=== PATIENT | female | born 1960 ===

== ENCOUNTER 2016-12-24 12:01 | Inpatient (IN) | payer SELFPAY ==
--- NOTE | 2016-12-24 13:24 | C.PDOC ---
History Of Present Illness 56 yr old female presents to the ER with complaints of productive cough with yellow phlegm for the past 2 days. Patient reports of pain in chest when she coughs. Also reports of SOB. Denies history of asthma, smoking, nausea, vomiting , weakness or numbness. Time Seen by Provider: 12/24/16 12:44 Chief Complaint (Nursing): Shortness Of Breath History Per: Patient History/Exam Limitations: no limitations Onset/Duration Of Symptoms: Days (2) Past Medical History Reviewed: Historical Data, Nursing Documentation, Vital Signs Vital Signs: Last Vital Signs Temp 98.4 F 12/24/16 18:25 Pulse 111 H 12/24/16 18:25 Resp 15 12/24/16 18:25 BP 151/78 H 12/24/16 18:25 Pulse Ox 96 12/24/16 18:57 - Medical History PMH: Gastritis, HTN, Pneumonia - [facility] Procedures EXCISION OF ASCENDING COLON, ENDO (10/20/15) Family History: States: No Known Family Hx - Social History Hx Tobacco Use: No Hx Alcohol Use: No Hx Substance Use: No - Immunization History Hx Tetanus Toxoid Vaccination: No Hx Influenza Vaccination: No Hx Pneumococcal Vaccination: Yes Review Of Systems Except As Marked, All Systems Reviewed And Found Negative. Cardiovascular: Positive for: Chest Pain (With cough) Respiratory: Positive for: Cough (yellow phlegm), Shortness of Breath Gastrointestinal: Negative for: Nausea, Vomiting Neurological: Negative for: Weakness, Numbness Physical Exam - Physical Exam Appears: Non-toxic, No Acute Distress Skin: Warm, Dry, No Rash Head: Atraumatic, Normacephalic Oral Mucosa: Moist Chest: Symmetrical, No Tenderness Cardiovascular: Rhythm Regular, No Murmur Respiratory: No Rales, No Rhonchi, Wheezing (Diffuse, bilateral wheezing) Extremity: Normal ROM, No Swelling Neurological/Psych: Oriented x3, Normal Speech, Normal Motor ED Course And Treatment - Laboratory Results Result Diagrams: 12/24/16 13:49 12/24/16 13:49 ECG: Interpreted By Me, Viewed By Me ECG Rhythm: Sinus Rhythm ECG Interpretation: Normal Rate From EC (BPM) O2 Sat by Pulse Oximetry: 96 (RA) Pulse Ox Interpretation: Normal - Radiology CXR: Viewed By Me, Read By Radiologist CXR Interpretation: Yes: Other (IMPRESSION: No radiographic evidence of pneumonia or significant interval change.) Progress Note: Pt is still wheezing after 4.5 hrs in ED, so far pt was treated with solumedrol and 6 duoneb treatments. Pt reports feeling better. - Physician Consult Information Physician Contacted: Omar Aguilar Outcome Of Conversation: accepted the pt Medical Decision Making Medical Decision Making: PLAN: * CXR * EKG * CBC * CMP * Albuterol IH * Potassium Chloride PO * Solumedrol IVP Disposition Counseled Patient/Family Regarding: Studies Performed, Diagnosis - Disposition Disposition: HOSPITALIZED Disposition Time: 16:52 Condition: STABLE - Clinical Impression Clinical Impression: Hypokalemia, Reactive airway disease, Bronchitis - PA / ORDER ENTRY REPRESENTATIVE / Resident Statement MD/DO has reviewed & agrees with the documentation as recorded. - Scribe Statement The provider has reviewed the documentation as recorded by the Scribe Mirtha Arellano All medical record entries made by the Khushbooibmarielena were at my direction and personally dictated by me. I have reviewed the chart and agree that the record accurately reflects my personal performance of the history, physical exam, medical decision making, and the department course for this patient. I have also personally directed, reviewed, and agree with the discharge instructions and disposition. Decision To Admit - Pt Status Changed To: Hospital Disposition Of: Observation - . Bed Request Type: Regular Admitting Physician: Omar Aguilar Patient Diagnosis: Hypokalemia, Reactive airway disease, Bronchitis
[2016-12-24] MEDS ORDERED: Albuterol-Ipratrop 3 mg / 0.5 (3 ml) UD ONE ×3 (13:40→16:28)
[2016-12-24] MEDS: Albuterol-Ipratrop 3 mg / 0.5 (3 ml) UD IH SCH ×3 (13:52→16:30)
[2016-12-24 13:54] LABS: BASO % 0.6 % (0.0-2.0); EOS # 0.5 K/uL (0.0-0.7); EOS % 10.7 % (0.0-4.0); HEMATOCRIT 41.3 % (34.0-47.0); LYMPH % 19.5 % (20.0-40.0); MEAN CELL VOLUME 86.6 fL (81.0-99.0); MEAN CORPUSCULAR HEMOGLOBIN 29.5 pg (27.0-31.0); MEAN CORPUSCULAR HGB CONC 34.1 g/dL (33.0-37.0); MEAN PLATELET VOLUME 8.5 fL (7.2-11.7); MONO # 0.6 K/uL (0.0-0.8); MONO % 11.4 % (0.0-10.0); RED CELL DISTRIBUTION WIDTH 13.4 % (11.5-14.5); WHITE BLOOD COUNT 4.9 K/uL (4.8-10.8)
[2016-12-24 14:03] LABS: CHLORIDE 105 mmol/L (98-107); POTASSIUM 3.1 mmol/L (3.6-5.2); SODIUM 141 mmol/L (132-148)
[2016-12-24 14:05] LABS: GFR AFRICAN-AMERICAN > 60
[2016-12-24 14:06] LABS: ALKALINE PHOSPHATASE 108 U/L (38-126); ALT/SGPT 62 U/L (9-52); AST/SGOT 38 U/L (14-36); BILIRUBIN,TOTAL 0.8 mg/dL (0.2-1.3); BLOOD UREA NITROGEN 16 mg/dL (7-17); CARBON DIOXIDE 23 mmol/L (22-30); GLUCOSE,RANDOM 86 mg/dL (65-105); TOTAL PROTEIN 8.3 g/dL (6.3-8.3)
[2016-12-24] MEDS ORDERED: Potassium Chloride 20 mEq ER Tab PO STA (14:23)
--- NOTE | 2016-12-24 14:34 | RAD ---
HISTORY: cough, wheezing COMPARISON: 10/17/2015 TECHNIQUE: Chest PA and lateral FINDINGS: LUNGS: Prominent lung markings and small bibasilar opacities are again noted. PLEURA: No significant pleural effusion identified. No pneumothorax apparent. CARDIOVASCULAR: Normal. OSSEOUS STRUCTURES: No significant abnormalities. VISUALIZED UPPER ABDOMEN: Normal. OTHER FINDINGS: None. IMPRESSION: No radiographic evidence of pneumonia or significant interval change.
[2016-12-24] MEDS ORDERED: Potassium Chloride 20 mEq ER Tab PO ONE (15:23)
--- NOTE | 2016-12-24 18:51 | CP.PCM.PN ---
Subjective - Date & Time of Evaluation Date of Evaluation: 12/24/16 Time of Evaluation: 18:44 - Subjective Subjective: Internal Medicine History and Physical for Dr. Aguilar 56F presents with shortness of breath for 2 days. Patient states she has a frontal headache since Monday. Patient states she's had pneumonia for four years. Patient denies fever, chills. Admits to productive sputum that is yellow in color. Patient admits to wheezing. Patient has never had it before. 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 Patient states that after treatment in Emergency room, she feels a little better. Daughter was called to listen to our conversation and will be arriving later in the night to visit her mother. 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 Past surgical history: ectopic Family history: epilepsy Dr. Gerber in [place]. Objective - Vital Signs/Intake and Output Vital Signs (last 24 hours): Temp Pulse Resp BP Pulse Ox 98.4 F 111 H 15 151/78 H 98 12/24/16 18:25 12/24/16 18:25 12/24/16 18:25 12/24/16 18:25 12/24/16 18:25 - Medications Medications: Current Medications Budesonide (Pulmicort Respules) 0.5 mg INH RQ12 DAVE Methylprednisolone (Solu-Medrol) 40 mg IVP Q6H DAVE - Labs Labs: 12/24/16 13:49 12/24/16 13:49 - Constitutional Appears: Non-toxic - Head Exam Head Exam: NORMAL INSPECTION - Eye Exam Eye Exam: EOMI Pupil Exam: NORMAL ACCOMODATION - ENT Exam ENT Exam: Mucous Membranes Moist, Normal Exam. absent: Mucous Membranes Dry - Neck Exam Neck Exam: Full ROM - Respiratory Exam Respiratory Exam: NORMAL BREATHING PATTERN. absent: Accessory Muscle Use, Respiratory Distress - Cardiovascular Exam Cardiovascular Exam: REGULAR RHYTHM, +S1, +S2. absent: Bradycardia, Tachycardia - GI/Abdominal Exam GI & Abdominal Exam: Soft. absent: Tenderness
[2016-12-24] MEDS ORDERED: MethylPREDNISolone 40 mg Vial ONE (19:12)
[2016-12-24] MEDS: MethylPREDNISolone 40 mg Vial IVP SCH (19:13)
--- NOTE | 2016-12-24 19:16 | CP.PCM.HP ---
<MirelaMegan - Last Filed: 12/24/16 22:10> History of Present Illness - History of Present Illness History of Present Illness: Internal Medicine History and Physical for Dr. Aguilar 56F presents with shortness of breath for 2 days. Patient states she has a frontal headache since Monday. Patient states she's had pneumonia for four years. Patient denies fever, chills. Admits to productive sputum that is yellow in color. Patient admits to wheezing. Patient has never had it before. 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 Patient states that after treatment in Emergency room, she feels a little better. Daughter was called to listen to our conversation and will be arriving later in the night to visit her mother. 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 Past surgical history: ectopic Family history: epilepsy Dr. Gerber in [place]. Present on Admission - Present on Admission Any Indicators Present on Admission: No History of DVT/PE: No History of Uncontrolled Diabetes: No Urinary Catheter: No Past Patient History - Past Medical History & Family History Past Medical History?: Yes - Past Social History Smoking Status: Never Smoked - CARDIAC Hx Hypertension: Yes - PULMONARY Hx Pneumonia: Yes - NEUROLOGICAL Hx Neurological Disorder: No - HEENT Hx HEENT Problems: No - RENAL Hx Chronic Kidney Disease: No - ENDOCRINE/METABOLIC Hx Endocrine Disorders: No - HEMATOLOGICAL/ONCOLOGICAL Hx Blood Disorders: No - INTEGUMENTARY Hx Dermatological Problems: No - MUSCULOSKELETAL/RHEUMATOLOGICAL Hx Musculoskeletal Disorders: No Hx Falls: No - GASTROINTESTINAL Hx Gastritis: Yes - GENITOURINARY/GYNECOLOGICAL Hx Genitourinary Disorders: No - PSYCHIATRIC Hx Substance Use: No - SURGICAL HISTORY Hx Surgeries: Yes Other/Comment: ECTOPIC 15YRS AGO - ANESTHESIA Hx Anesthesia: Yes Hx Anesthesia Reactions: No Meds Allergies/Adverse Reactions: Allergies Allergy/AdvReac Type Severity Reaction Status Date / Time No Known Allergies Allergy Verified 12/24/16 12:20 Physical Exam - Head Exam Head Exam: NORMAL INSPECTION - Eye Exam Eye Exam: EOMI, Normal appearance - ENT Exam ENT Exam: Mucous Membranes Moist, Normal Exam - Neck Exam Neck exam: Positive for: Full Rom. Negative for: Lymphadenopathy Additional comments: pain with coughing - Respiratory Exam Respiratory Exam: Decreased Breath Sounds, Wheezes Additional comments: expiratory wheeze - Cardiovascular Exam Cardiovascular Exam: Tachycardia, REGULAR RHYTHM, +S1, +S2. absent: Bradycardia - GI/Abdominal Exam GI & Abdominal Exam: Soft. absent: Tenderness - Neurological Exam Neurological exam: Alert, Normal Gait, Oriented x3 - Psychiatric Exam Psychiatric exam: Normal Affect, Normal Mood - Skin Skin Exam: Dry, Intact, Normal Color, Warm Results - Vital Signs Recent Vital Signs: Last Vital Signs Temp 98.4 F 12/24/16 18:25 Pulse 111 H 12/24/16 18:25 Resp 15 12/24/16 18:25 BP 151/78 H 12/24/16 18:25 Pulse Ox 96 12/24/16 19:00 - Labs Result Diagrams: 12/24/16 13:49 12/24/16 13:49 Labs: Laboratory Results - last 24 hr 12/24/16 12/24/16 13:49 13:49 WBC 4.9 RBC 4.77 Hgb 14.1 Hct 41.3 MCV 86.6 MCH 29.5 MCHC 34.1 RDW 13.4 Plt Count 198 MPV 8.5 Neut % (Auto) 57.8 Lymph % (Auto) 19.5 L Forrest % (Auto) 11.4 H Eos % (Auto) 10.7 H Baso % (Auto) 0.6 Neut # 2.8 Lymph # 1.0 Forrest # 0.6 Eos # 0.5 Baso # 0.0 Sodium 141 Potassium 3.1 L Chloride 105 Carbon Dioxide 23 Anion Gap 16 BUN 16 Creatinine 0.5 L Est GFR ( Amer) > 60 Est GFR (Non-Af Amer) > 60 Random Glucose 86 Calcium 9.0 Total Bilirubin 0.8 AST 38 H ALT 62 H Alkaline Phosphatase 108 Total Protein 8.3 Albumin 4.1 Globulin 4.2 H Albumin/Globulin Ratio 1.0 Assessment & Plan - Assessment and Plan (Free Text) Assessment: Shortness of breath follow up sputum culture follow up mycoplasma ab follow up blood cx monitor vitals Avalox PO QD, no IV formula in pharmacy Solumerol 40mg IVQ6H Pulmicort Singulair 10mg QHS pre and post flow monitor for pulmonary function. HTN history Continue home medication Amlodipine 5mg POQD Gastritis history continue home medication Omeprazole Megan Dietz DO PGY1 - Date & Time Date: 12/24/16 Time: 18:30 <Aguilar,Peter H - Last Filed: 12/25/16 07:42> Results - Vital Signs Recent Vital Signs: Last Vital Signs Temp 98 F 12/25/16 00:00 Pulse 80 12/25/16 00:00 Resp 20 12/25/16 00:00 BP 122/68 12/25/16 00:00 Pulse Ox 94 L 12/25/16 00:00 - Labs Result Diagrams: 12/24/16 13:49 12/24/16 13:49 Labs: Laboratory Results - last 24 hr 12/24/16 12/24/16 13:49 13:49 WBC 4.9 RBC 4.77 Hgb 14.1 Hct 41.3 MCV 86.6 MCH 29.5 MCHC 34.1 RDW 13.4 Plt Count 198 MPV 8.5 Neut % (Auto) 57.8 Lymph % (Auto) 19.5 L Forrest % (Auto) 11.4 H Eos % (Auto) 10.7 H Baso % (Auto) 0.6 Neut # 2.8 Lymph # 1.0 Forrest # 0.6 Eos # 0.5 Baso # 0.0 Sodium 141 Potassium 3.1 L Chloride 105 Carbon Dioxide 23 Anion Gap 16 BUN 16 Creatinine 0.5 L Est GFR ( Amer) > 60 Est GFR (Non-Af Amer) > 60 Random Glucose 86 Calcium 9.0 Total Bilirubin 0.8 AST 38 H ALT 62 H Alkaline Phosphatase 108 Total Protein 8.3 Albumin 4.1 Globulin 4.2 H Albumin/Globulin Ratio 1.0 Attending/Attestation - Attestation I have personally seen and examined this patient.: Yes I have fully participated in the care of the patient.: Yes I have reviewed all pertinent clinical information: Yes Notes (Text): 12/25/16 07:40 Medical Attending: Patient was seen and examined by me, agree with the above note by the resident The patient had some expiratory wheezing on exam. She had already had solumedrol 125 x 1 in the ER as well as nebulizer treatments. In the ER we did a random peak flow, it was 260. So at this time will give solumedrol 40 IV Q8hrs and taper as needed. Also Pulmicort, and also singulair thank you Omar Aguilar
[2016-12-24] MEDS ORDERED: Moxifloxacin IV 400mg/250ml NS 400 MG/250 ML BAG IVPB SCH (22:00)
[2016-12-25] MEDS: MethylPREDNISolone 40 mg Vial IVP SCH ×4 (00:54→17:40)
[2016-12-25] MEDS: Albuterol-Ipratrop 3 mg / 0.5 (3 ml) UD INH SCH ×5 (02:03→23:46)
[2016-12-25] MEDS: Budesonide 0.5 mg/2 ml Inhal Susp UD INH SCH ×2 (08:13→20:44)
[2016-12-25] MEDS: Pantoprazole 20 mg EC Tab PO SCH (09:21)
--- NOTE | 2016-12-25 09:48 | CP.PCM.PN ---
Subjective - Date & Time of Evaluation Date of Evaluation: 12/25/16 Time of Evaluation: 09:30 - Subjective Subjective: Patient was seen and examined by me She reports she does think her breathing is mildly improved today. From my very minimal understanding of French, she appears and reports feeling comfortable at rest, speaking full sentences. On exam still has expiratory wheezing A random bedside peakflow was 250 I also had her stand and walk with me - at that point she was noticeable short of breath, wheezing, and she reported palpitations. We walked into the hallway and then back into the room Plan is to continue the soluedrol, duronebulizers, and pulicort and singulair. Pending on cultures as well as pending on the atypical cultures. On Avelox prophylactically. Objective - Vital Signs/Intake and Output Vital Signs (last 24 hours): Temp Pulse Resp BP Pulse Ox 98.2 F 90 20 156/84 H 95 12/25/16 08:34 12/25/16 08:34 12/25/16 08:34 12/25/16 08:34 12/25/16 08:34 Intake and Output: 12/25/16 12/25/16 06:59 18:59 Intake Total 120 Balance 120 - Medications Medications: Current Medications Albuterol/Ipratropium (Duoneb 3 Mg/0.5 Mg (3 Ml) Ud) 3 ml INH RQ6 DAVE Last Admin: 12/25/16 08:13 Dose: 3 ml Amlodipine Besylate (Norvasc) 5 mg PO DAILY DAVE Last Admin: 12/25/16 09:21 Dose: 5 mg Budesonide (Pulmicort Respules) 0.5 mg INH RQ12 DAVE Last Admin: 12/25/16 08:13 Dose: 0.5 mg Methylprednisolone (Solu-Medrol) 40 mg IVP Q6H DAVE Last Admin: 12/25/16 06:00 Dose: 40 mg Montelukast Sodium (Singulair) 10 mg PO HS DAVE Last Admin: 12/24/16 23:22 Dose: 10 mg Moxifloxacin HCl (Avelox) 400 mg PO DAILY DAVE Last Admin: 12/25/16 09:20 Dose: 400 mg Pantoprazole Sodium (Protonix Ec Tab) 20 mg PO DAILY DAVE Last Admin: 12/25/16 09:21 Dose: 20 mg - Labs Labs: 12/24/16 13:49 12/24/16 13:49 - Constitutional Appears: No Acute Distress - Head Exam Head Exam: NORMAL INSPECTION, NORMOCEPHALIC - Eye Exam Eye Exam: EOMI, Normal appearance - ENT Exam ENT Exam: Mucous Membranes Moist - Neck Exam Neck Exam: Normal Inspection - Respiratory Exam Respiratory Exam: Rhonchi, Wheezes - Cardiovascular Exam Cardiovascular Exam: REGULAR RHYTHM - GI/Abdominal Exam GI & Abdominal Exam: Soft, Normal Bowel Sounds. absent: Guarding, Rigid, Tenderness, Diminished Bowel Sounds, Hernia - Neurological Exam Neurological Exam: Alert, Awake Neuro motor strength exam: Left Upper Extremity: 5, Right Upper Extremity: 5, Left Lower Extremity: 5, Right Lower Extremity: 5 - Psychiatric Exam Psychiatric exam: Normal Affect, Normal Mood - Skin Skin Exam: Dry, Normal Color, Warm Assessment and Plan - Assessment and Plan (Free Text) Assessment: Asthma 12/25: She appears comfortable at rest, speaking full sentences. However still has expiratory wheezing. When walking with patient she reports worsensing shortness of breath, palpitations. Will check BNP as well as echo. In the mean time continue solumedrol, pumicort, due nebulizers follow up sputum culture follow up mycoplasma ab follow up blood cx monitor vitals Avalox PO QD, no IV formula in pharmacy Solumerol 40mg IVQ6H Pulmicort Singulair 10mg QHS pre and post flow monitor for pulmonary function. HTN history Continue home medication Amlodipine 5mg POQD Gastritis history continue home medication Omeprazole
[2016-12-25 12:02] LABS: CHLORIDE 103 mmol/L (98-107); SODIUM 139 mmol/L (132-148)
[2016-12-25 12:03] LABS: HEMATOCRIT 41.3 % (34.0-47.0); MEAN CELL VOLUME 86.7 fL (81.0-99.0); MEAN CORPUSCULAR HEMOGLOBIN 29.7 pg (27.0-31.0); MEAN CORPUSCULAR HGB CONC 34.2 g/dL (33.0-37.0); MEAN PLATELET VOLUME 8.9 fL (7.2-11.7); POTASSIUM 3.9 mmol/L (3.6-5.2); RED CELL DISTRIBUTION WIDTH 13.6 % (11.5-14.5); WHITE BLOOD COUNT 11.1 K/uL (4.8-10.8)
[2016-12-25 12:05] LABS: ALB/GLOB RATIO 1.2 (1.0-2.1); ALKALINE PHOSPHATASE 95 U/L (38-126); ALT/SGPT 59 U/L (9-52); AST/SGOT 37 U/L (14-36); BLOOD UREA NITROGEN 18 mg/dL (7-17); CARBON DIOXIDE 20 mmol/L (22-30); GFR AFRICAN-AMERICAN > 60
[2016-12-25 12:06] LABS: CALCIUM 9.5 mg/dl (8.6-10.4); GLUCOSE,RANDOM 135 mg/dL (65-105)
[2016-12-26] MEDS: MethylPREDNISolone 40 mg Vial IVP SCH ×4 (00:26→17:46)
[2016-12-26] MEDS: Albuterol-Ipratrop 3 mg / 0.5 (3 ml) UD INH SCH ×5 (04:16→19:44)
[2016-12-26] MEDS ORDERED: Albuterol-Ipratrop 3 mg / 0.5 (3 ml) UD INH STA (05:51)
[2016-12-26 08:20] VITALS: RESP 20
[2016-12-26] MEDS: Budesonide 0.5 mg/2 ml Inhal Susp UD INH SCH (08:23)
[2016-12-26] MEDS: Pantoprazole 20 mg EC Tab PO SCH (09:09)
[2016-12-26] MEDS ORDERED: Influenza Vaccine 60 mcg/0.5 mL SYR (4YR UP) IM ONE (10:00)
[2016-12-26] MEDS: Azithromycin 500 MG in Sodium Chloride 0.9% 250 ML IVPB SCH (10:59)
[2016-12-26 11:31] LABS: BASO % 0.1 % (0.0-2.0); HEMATOCRIT 40.1 % (34.0-47.0); LYMPH # 0.5 K/uL (1.0-4.3); LYMPH % 3.2 % (20.0-40.0); MEAN CELL VOLUME 87.1 fL (81.0-99.0); MEAN CORPUSCULAR HGB CONC 33.3 g/dL (33.0-37.0); MEAN PLATELET VOLUME 8.5 fL (7.2-11.7); MONO # 0.6 K/uL (0.0-0.8); MONO % 3.9 % (0.0-10.0); PLATELET COUNT 213 K/uL (130-400); RED CELL DISTRIBUTION WIDTH 13.5 % (11.5-14.5); WHITE BLOOD COUNT 15.3 K/uL (4.8-10.8)
[2016-12-26 11:46] LABS: CHLORIDE 103 mmol/L (98-107); POTASSIUM 3.9 mmol/L (3.6-5.2); SODIUM 139 mmol/L (132-148)
[2016-12-26 11:48] LABS: AST/SGOT 36 U/L (14-36); BILIRUBIN,TOTAL 0.6 mg/dL (0.2-1.3); CARBON DIOXIDE 20 mmol/L (22-30); GFR AFRICAN-AMERICAN > 60
[2016-12-26 11:49] LABS: ALB/GLOB RATIO 1.1 (1.0-2.1); ALKALINE PHOSPHATASE 87 U/L (38-126); ALT/SGPT 58 U/L (9-52); BLOOD UREA NITROGEN 17 mg/dL (7-17); CALCIUM 9.3 mg/dl (8.6-10.4); GLUCOSE,RANDOM 245 mg/dL (65-105); TOTAL PROTEIN 7.9 g/dL (6.3-8.3)
[2016-12-26 12:18] LABS: NEUTROPHIL 94 % (50-75); TOTAL CELLS COUNTED 100
--- NOTE | 2016-12-26 16:11 | RAD ---
HISTORY: pneumonia COMPARISON: 12/24/2016 TECHNIQUE: Chest PA and lateral FINDINGS: LUNGS: No acute infiltrate. Probable subsegmental atelectasis lower left lung. . PLEURA: No significant pleural effusion identified. No pneumothorax apparent. CARDIOVASCULAR: Normal. OSSEOUS STRUCTURES: No significant abnormalities. VISUALIZED UPPER ABDOMEN: Normal. OTHER FINDINGS: None. IMPRESSION: No acute infiltrate.
--- NOTE | 2016-12-26 18:29 | CP.PCM.PN ---
<MirelaMegan - Last Filed: 12/26/16 18:29> Subjective - Date & Time of Evaluation Date of Evaluation: 12/26/16 Time of Evaluation: 07:30 - Subjective Subjective: Progress note for Dr. Wang Patient seen and examined at bedside No acute events overnight. Patient states she is coughing with a little phlegm, but feels better overall. Patient explained that we are waiting for sputum culture test and currently, her blood tests are negative. Patient denies Fever, chills, difficulty with urination or bowel movements, nausea, chest pain. Patient admits to cough, shortness of breath with exertion. Objective - Vital Signs/Intake and Output Vital Signs (last 24 hours): Temp Pulse Resp BP Pulse Ox 98.2 F 99 H 20 133/82 95 12/26/16 16:00 12/26/16 16:00 12/26/16 16:00 12/26/16 16:00 12/26/16 16:00 Intake and Output: 12/26/16 12/26/16 06:59 18:59 Intake Total 540 490 Balance 540 490 - Medications Medications: Current Medications Albuterol/Ipratropium (Duoneb 3 Mg/0.5 Mg (3 Ml) Ud) 3 ml INH RQ4 DAVE Last Admin: 12/26/16 15:57 Dose: 3 ml Amlodipine Besylate (Norvasc) 5 mg PO DAILY [facility] Last Admin: 12/26/16 09:09 Dose: 5 mg Azithromycin 500 mg/ Sodium (Chloride) 250 mls @ 250 mls/hr IVPB DAILY DAVE Last Admin: 12/26/16 10:59 Dose: 250 mls/hr Ceftriaxone Sodium 1 gm/ (Sodium Chloride) 100 mls @ 100 mls/hr IVPB Q12H DAVE Last Admin: 12/26/16 10:59 Dose: 100 mls/hr Methylprednisolone (Solu-Medrol) 40 mg IVP Q8H DVAE Last Admin: 12/26/16 17:46 Dose: 40 mg Montelukast Sodium (Singulair) 10 mg PO HS DAVE Last Admin: 12/25/16 21:14 Dose: 10 mg Pantoprazole Sodium (Protonix Ec Tab) 20 mg PO DAILY DAVE Last Admin: 12/26/16 09:09 Dose: 20 mg - Labs Labs: 12/26/16 11:23 12/26/16 11:23 - Constitutional Appears: Non-toxic - Head Exam Head Exam: NORMAL INSPECTION - Eye Exam Eye Exam: EOMI, Normal appearance - ENT Exam ENT Exam: Mucous Membranes Moist - Respiratory Exam Respiratory Exam: Decreased Breath Sounds, NORMAL BREATHING PATTERN. absent: Accessory Muscle Use, Respiratory Distress - Cardiovascular Exam Cardiovascular Exam: REGULAR RHYTHM. absent: Bradycardia, Tachycardia - GI/Abdominal Exam GI & Abdominal Exam: Soft. absent: Tenderness - Neurological Exam Neurological Exam: Alert, Awake, Normal Gait, Oriented x3 - Psychiatric Exam Psychiatric exam: Normal Affect, Normal Mood - Skin Skin Exam: Dry, Normal Color, Warm Assessment and Plan - Assessment and Plan (Free Text) Assessment: Shortness of breath follow up sputum culture follow up mycoplasma ab, legionella ab, s. pneumonia ab follow up blood cx monitor vitals Avalox PO QD, no IV formula in pharmacy Solumerol 40mg IVQ6H Pulmicort Singulair 10mg QHS pre and post flow monitor for pulmonary function. 12/26 f/u Echo 12/26 BNP 181 HTN history Continue home medication Amlodipine 5mg POQD Gastritis history continue home medication Omeprazole Megan Eng, DO PGY1 <Saira Wang V - Last Filed: 12/26/16 20:53> Objective - Vital Signs/Intake and Output Vital Signs (last 24 hours): Temp Pulse Resp BP Pulse Ox 98.2 F 99 H 20 133/82 95 12/26/16 16:00 12/26/16 16:00 12/26/16 16:00 12/26/16 16:00 12/26/16 16:00 Intake and Output: 12/26/16 12/27/16 18:59 06:59 Intake Total 490 Balance 490 - Medications Medications: Current Medications Albuterol/Ipratropium (Duoneb 3 Mg/0.5 Mg (3 Ml) Ud) 3 ml INH RQ4 DAVE Last Admin: 12/26/16 19:44 Dose: 3 ml Amlodipine Besylate (Norvasc) 5 mg PO DAILY DAVE Last Admin: 12/26/16 09:09 Dose: 5 mg Azithromycin 500 mg/ Sodium (Chloride) 250 mls @ 250 mls/hr IVPB DAILY DAVE Last Admin: 12/26/16 10:59 Dose: 250 mls/hr Ceftriaxone Sodium 1 gm/ (Sodium Chloride) 100 mls @ 100 mls/hr IVPB Q12H [facility] Last Admin: 12/26/16 10:59 Dose: 100 mls/hr Methylprednisolone (Solu-Medrol) 40 mg IVP Q8H [facility] Last Admin: 12/26/16 17:46 Dose: 40 mg Montelukast Sodium (Singulair) 10 mg PO HS [facility] Last Admin: 12/25/16 21:14 Dose: 10 mg Pantoprazole Sodium (Protonix Ec Tab) 20 mg PO DAILY [facility] Last Admin: 12/26/16 09:09 Dose: 20 mg - Labs Labs: 12/26/16 11:23 12/26/16 11:23 Attending/Attestation - Attestation I have personally seen and examined this patient.: Yes I have fully participated in the care of the patient.: Yes I have reviewed all pertinent clinical information, including history, physical exam and plan: Yes Notes (Text): Patient seen, examined, and case discussed with day-time resident. Patient reports breathing has improved. Will start tapering off the steroids. Repeat chest xray shows no active disease. patient is on IV abx to cover for community acquired pneumonia. Pending serology studies Patient is possible discharge tomorrow pending echocardiogram. Lung exam improving based on prior notes Assessment/Plan 1) Shortness of breath Bronchitis * follow up sputum culture * follow up mycoplasma ab serology, legionella ab urine, s. pneumonia ab urine * Blood cultures (12/24/16): no growth X24 hours X2 * Rocephin 1 gram IV Q12h (active since 12/26/16) * Azithromycin 500mg IVPB (active since 12/26/16) * Solumerol 40mg IVQ8H * Singulair 10mg QHS * pending serum IgE * BNP 181 * pending echocardiogram official report 2) HTN, history * Continue home medication Amlodipine 5mg POQDaily 3) Gastritis, history * Protonix 40mg PO daily for GI ppx 4) Prophylactic care * Lovenox 40mg subqaily for DVT ppx * Protonix 40mg PO daily for GI ppx
[2016-12-26] MEDS ORDERED: Pantoprazole 40 mg EC Tab PO SCH (20:53)
[2016-12-26 23:24] VITALS: O2SAT 96
[2016-12-27] MEDS: MethylPREDNISolone 40 mg Vial IVP SCH ×3 (01:35→17:49)
[2016-12-27] MEDS: Albuterol-Ipratrop 3 mg / 0.5 (3 ml) UD INH SCH ×5 (01:36→16:04)
[2016-12-27 08:26] LABS: BASO # 0.1 K/uL (0.0-0.2); BASO % 0.4 % (0.0-2.0); HEMATOCRIT 40.7 % (34.0-47.0); LYMPH # 0.7 K/uL (1.0-4.3); LYMPH % 5.5 % (20.0-40.0); MEAN CELL VOLUME 86.6 fL (81.0-99.0); MEAN CORPUSCULAR HEMOGLOBIN 29.7 pg (27.0-31.0); MEAN CORPUSCULAR HGB CONC 34.3 g/dL (33.0-37.0); MEAN PLATELET VOLUME 8.7 fL (7.2-11.7); MONO # 0.3 K/uL (0.0-0.8); MONO % 2.5 % (0.0-10.0); PLATELET COUNT 228 K/uL (130-400); RED CELL DISTRIBUTION WIDTH 13.6 % (11.5-14.5); WHITE BLOOD COUNT 13.6 K/uL (4.8-10.8)
[2016-12-27 08:52] LABS: NEUTROPHIL 88 % (50-75); TOTAL CELLS COUNTED 100
[2016-12-27 08:53] LABS: CHLORIDE 101 mmol/L (98-107); POTASSIUM 3.9 mmol/L (3.6-5.2); SODIUM 137 mmol/L (132-148)
[2016-12-27 08:55] LABS: ALB/GLOB RATIO 1.2 (1.0-2.1); ALKALINE PHOSPHATASE 92 U/L (38-126); AST/SGOT 28 U/L (14-36); BILIRUBIN,TOTAL 0.6 mg/dL (0.2-1.3); CARBON DIOXIDE 23 mmol/L (22-30); GFR AFRICAN-AMERICAN > 60; TOTAL PROTEIN 7.7 g/dL (6.3-8.3)
[2016-12-27 08:56] LABS: ALT/SGPT 54 U/L (9-52); BLOOD UREA NITROGEN 18 mg/dL (7-17); CALCIUM 8.7 mg/dl (8.6-10.4); GLUCOSE,RANDOM 165 mg/dL (65-105)
[2016-12-27] MEDS: Saccharomyces Boulardi 250 mg Cap PO SCH ×2 (10:11→17:49)
[2016-12-27] MEDS: Pantoprazole 20 mg EC Tab PO SCH (10:11)
[2016-12-27] MEDS: Azithromycin 500 MG in Sodium Chloride 0.9% 250 ML IVPB SCH (10:13)
--- NOTE | 2016-12-27 11:41 | CARD ---
APPROVED REPORT EXAM: Two-dimensional and M-mode echocardiogram with Doppler and color Doppler. Other Information Quality : GoodRhythm : NSR INDICATION LEG EDEMA RISK FACTORS Hypertension M-Mode DIMENSIONS RVDd1.61 (2.1-3.2cm)Left Atrium (MM)3.61 (2.5-4.0cm) IVSd0.97 (0.7-1.1cm)Aortic Root2.75 (2.2-3.7cm) LVDd4.68 (4.0-5.6cm)Aortic Cusp Exc.1.91 (1.5-2.0cm) PWd0.97 (0.7-1.1cm)FS (%) 50 % LVDs2.34 (2.0-3.8cm)LVEF (%)81 (>50%) Mitral Valve MV E Qxdmysfm93.4cm/sMV A Iphravju329.7cm/sE/A ratio0.9 TDI E/Lateral E'0.0E/Medial E'0.0 Tricuspid Valve TR Peak [id number]/sTR Peak Gr.[id number] LEFT VENTRICLE The left ventricle is normal size. There is normal left ventricular wall thickness. Left ventricle systolic function is normal. The Ejection Fraction is >70%. There is normal LV segmental wall motion. Transmitral Doppler flow pattern is abnormal.Grade I-abnormal relaxation pattern. No left ventricle thrombus noted on this study. RIGHT VENTRICLE The right ventricle is normal size. The right ventricular systolic function is normal. ATRIA The left atrium size is normal. The right atrium size is normal. AORTIC VALVE The aortic valve is mildly thickened. The aortic valve is trileaflet. No aortic regurgitation is present. There is no aortic valvular stenosis. There is no aortic valvular vegetation. MITRAL VALVE Mitral annular calcification is mild. There is no evidence of mitral valve prolapse. There is no mitral valve stenosis. There is no mitral valve regurgitation noted. TRICUSPID VALVE The tricuspid valve is normal in structure. There is mild tricuspid regurgitation. Right ventricular systolic pressure is estimated at 30-40 mmHg. There is no pulmonary hypertension. There is no tricuspid valve prolapse or vegetation. There is no tricuspid valve stenosis. PULMONIC VALVE The pulmonic valve is not well visualized. There is no pulmonic valvular regurgitation. GREAT VESSELS The aortic root is normal in size. The IVC is normal in size and collapses >50% with inspiration. PERICARDIAL EFFUSION There is no pericardial effusion. There is no pleural effusion. <Conclusion> The left ventricle is normal size. Left ventricle systolic function is normal. The Ejection Fraction is >70%. Transmitral Doppler flow pattern is abnormal.Grade I-abnormal relaxation pattern. The right ventricle is normal size. The right ventricular systolic function is normal. The left atrium size is normal. The right atrium size is normal. There is mild tricuspid regurgitation.
[2016-12-27 16:40] VITALS: BP 128/78; PULSE 75; TEMP 98
[2016-12-27] MEDS ORDERED: Enoxaparin 40 mg Syringe SC SCH (20:50)
--- NOTE | 2016-12-27 21:39 | CP.PCM.DIS ---
<Megan Dietz - Last Filed: 12/27/16 21:37> Provider - Provider Date of Admission: 12/26/16 09:30 Attending physician: Saira Wang DO Time Spent in preparation of Discharge (in minutes): 36 Diagnosis - Discharge Diagnosis (1) Asthmatic bronchitis Status: Acute Comment: patient stable for outpatient treatment of bronchitis. Patient saturating well on room air. patient is not short of breath. (2) HTN (hypertension) Status: Chronic Comment: patient's blood pressure is mildly controlled on home medications Hospital Course - Lab Results Lab Results: Micro Results 12/25/16 10:00 Sputum Gram Stain - Final 12/25/16 10:00 Sputum Sputum Culture - Final NORMAL ORAL ESTRADA 12/24/16 00:05 Blood-Venous Blood Culture - Preliminary NO GROWTH AFTER 48 HOURS 12/24/16 23:30 Blood-Venous Blood Culture - Preliminary NO GROWTH AFTER 48 HOURS Most Recent Lab Values WBC 13.6 K/uL (4.8-10.8) H 12/27/16 08: RBC 4.71 Mil/uL (3.80-5.20) 12/27/16 08:17 Hgb 14.0 g/dL (11.0-16.0) 12/27/16 08:17 Hct 40.7 % (34.0-47.0) 12/27/16 08:17 MCV 86.6 fL (81.0-99.0) 12/27/16 08:17 MCH 29.7 pg (27.0-31.0) 12/27/16 08:17 MCHC 34.3 g/dL (33.0-37.0) 12/27/16 08:17 RDW 13.6 % (11.5-14.5) 12/27/16 08:17 Plt Count 228 K/uL (130-400) 12/27/16 08:17 MPV 8.7 fL (7.2-11.7) 12/27/16 08:17 Neut % (Auto) 91.6 % (50.0-75.0) H 12/27/16 08:17 Lymph % (Auto) 5.5 % (20.0-40.0) L 12/27/16 08: [place] % (Auto) 2.5 % (0.0-10.0) 12/27/16 08:17 Eos % (Auto) 0.0 % (0.0-4.0) 12/27/16 08:17 Baso % (Auto) 0.4 % (0.0-2.0) 12/27/16 08:17 Neut # 12.4 K/uL (1.8-7.0) H 12/27/16 08:17 Lymph # 0.7 K/uL (1.0-4.3) L 12/27/16 08:17 [place] # 0.3 K/uL (0.0-0.8) 12/27/16 08:17 Eos # 0.0 K/uL (0.0-0.7) 12/27/16 08:17 Baso # 0.1 K/uL (0.0-0.2) 12/27/16 08:17 Neutrophils % (Manual) 88 % (50-75) H 12/27/16 08:17 Band Neutrophils % 4 % (0-2) H 12/27/16 08:17 Lymphocytes % (Manual) 7 % (20-40) L 12/27/16 08:17 Monocytes % (Manual) 1 % (0-10) 12/27/16 08:17 Platelet Estimate Normal (NORMAL) 12/27/16 08:17 RBC Morphology Normal 12/27/16 08:17 Poikilocytosis (manual Slight 12/26/16 11:23 Anisocytosis (manual) Slight 12/26/16 11:23 Sodium 137 mmol/L (132-148) 12/27/16 08:17 Potassium 3.9 mmol/L (3.6-5.2) 12/27/16 08:17 Chloride 101 mmol/L (98-107) 12/27/16 08:17 Carbon Dioxide 23 mmol/L (22-30) 12/27/16 08:17 Anion Gap 18 (10-20) 12/27/16 08:17 BUN 18 mg/dL (7-17) H 12/27/16 08:17 Creatinine 0.6 mg/dL (0.7-1.2) L 12/27/16 08:17 Est GFR ( Amer) > 60 12/27/16 08:17 Est GFR (Non-Af Amer) > 60 12/27/16 08:17 Random Glucose 165 mg/dL (65-105) H 12/27/16 08:17 Calcium 8.7 mg/dl (8.6-10.4) 12/27/16 08:17 Total Bilirubin 0.6 mg/dL (0.2-1.3) 12/27/16 08:17 AST 28 U/L (14-36) 12/27/16 08:17 ALT 54 U/L (9-52) H 12/27/16 08:17 Alkaline Phosphatase 92 U/L (38-126) 12/27/16 08:17 NT-Pro-B Natriuret Pep 181 pg/mL (0-900) 12/25/16 11:56 Total Protein 7.7 g/dL (6.3-8.3) 12/27/16 08: Albumin 4.2 g/dL (3.5-5.0) 12/27/16 08:17 Globulin 3.5 gm/dL (2.2-3.9) 12/27/16 08:17 Albumin/Globulin Ratio 1.2 (1.0-2.1) 12/27/16 08:17 IgE 1124 kU/L (<vw=355) H 12/25/16 07:54 Ur L.pneumophila Ag Negative (NEGATIVE) 12/26/16 11:23 Mycoplasma pneumon IgM Negative (NEGATIVE) 12/26/16 11:10 - Hospital Course Hospital Course: HPI 56F presents with shortness of breath for 2 days. Patient states she has a frontal headache since Monday. Patient states she's had pneumonia for four years. Patient denies fever, chills. Admits to productive sputum that is yellow in color. Patient admits to wheezing. Patient has never had it before. 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 Patient states that after treatment in Emergency room, she feels a little better. Daughter was called to listen to our conversation and will be arriving later in the night to visit her mother. Patient had an XRAY taken which showed no radiographic evidence of pneumonia or significnt interval change. During hospital stay, patient placed on antibiotics. Patient was on PO avelox per Dr. Aguilar. Azithromycin and rocephin were given in place of avelox on 12/[address] Wang. Same coverage. Patient states she's coughing with a little phlegm, but feels a little better. Echocardiogram was ordered on 12/25 due to increased difficulty breathing with walking. Echo showed EF >70%, Patient did not have a fever during hospital stay. patient was cleared for discharge. Patient was discharged with Solumedrol, singulair, duonebulizers, and pulmicort. Patient was also placed on prednisone, Zpack to continue for 5 days. Patient was told she can resume her home medications for gastritis and HTN. Patient was told to follow up with clinic and to return to the ED if breathing, shortness of breath, tightness of the chest worsens. - Date & Time of H&P Date of H&P: 12/27/16 Time of H&P: 21:38 Discharge Exam - Head Exam Head Exam: NORMAL INSPECTION - Eye Exam Eye Exam: EOMI - ENT Exam ENT Exam: Mucous Membranes Moist, Normal Oropharynx - Neck Exam Neck exam: Full Rom - Respiratory Exam Respiratory Exam: NORMAL BREATHING PATTERN, UNREMARKABLE. absent: Accessory Muscle Use, Respiratory Distress - Cardiovascular Exam Cardiovascular Exam: REGULAR RHYTHM, +S1, +S2. absent: Bradycardia, Tachycardia - GI/Abdominal Exam GI & Abdominal Exam: Soft, Unremarkable. absent: Tenderness - Extremities Exam Extremities exam: full ROM - Back Exam Back exam: FULL ROM - Neurological Exam Neurological exam: Alert, CN II-XII Intact, Normal Gait, Oriented x3 - Psychiatric Exam Psychiatric exam: Normal Affect, Normal Mood - Skin Skin Exam: Dry, Intact, Normal Color, Warm Discharge Plan - Discharge Medications Prescriptions: Albuterol HFA [Ventolin HFA 90 mcg/actuation (8 g)] 1 puff IH Q6H PRN #1 inhaler PRN Reason: Shortness Of Breath amLODIPine [Norvasc] 5 mg PO DAILY #30 tab Azithromycin [Z-Rocky] 250 mg PO DAILY #6 tab Montelukast [Singulair] 10 mg PO HS #30 tab predniSONE [predniSONE Tab] 20 mg PO BID 5 Days tab Promethazine/Codeine [Phenergan/Codeine Oral Syrup] 5 ml PO Q4H PRN #120 udc PRN Reason: Cough - Follow Up Plan Condition: STABLE Disposition: HOME/ ROUTINE Instructions: Prednisone (By mouth), Azithromycin (By mouth), Amlodipine (By mouth), Ipratropium/Albuterol (By breathing), Montelukast (By mouth), Promethazine/Codeine (By mouth), Hypokalemia (DC), Acute Bronchitis (GEN), Acute Hemoptysis (DC), Hemoptysis (GEN), Reactive Airways Disease (GEN) <Saira Wang V - Last Filed: 12/27/16 22:30> Provider - Provider Date of Admission: 12/26/16 09:30 Attending physician: Saira Wang, Hospital Course - Lab Results Lab Results: Micro Results 12/25/16 10:00 Sputum Gram Stain - Final 12/25/16 10:00 Sputum Sputum Culture - Final NORMAL ORAL ESTRADA 12/24/16 00:05 Blood-Venous Blood Culture - Preliminary NO GROWTH AFTER 48 HOURS 12/24/16 23:30 Blood-Venous Blood Culture - Preliminary NO GROWTH AFTER 48 HOURS Most Recent Lab Values WBC 13.6 K/uL (4.8-10.8) H 12/27/16 08:17 RBC 4.71 Mil/uL (3.80-5.20) 12/27/16 08:17 Hgb 14.0 g/dL (11.0-16.0) 12/27/16 08:17 Hct 40.7 % (34.0-47.0) 12/27/16 08:17 MCV 86.6 fL (81.0-99.0) 12/27/16 08:17 MCH 29.7 pg (27.0-31.0) 12/27/16 08:17 MCHC 34.3 g/dL (33.0-37.0) 12/27/16 08:17 RDW 13.6 % (11.5-14.5) 12/27/16 08:17 Plt Count 228 K/uL (130-400) 12/27/16 08:17 MPV 8.7 fL (7.2-11.7) 12/27/16 08:17 Neut % (Auto) 91.6 % (50.0-75.0) H 12/27/16 08:17 Lymph % (Auto) 5.5 % (20.0-40.0) L 12/27/16 08:17 [place] % (Auto) 2.5 % (0.0-10.0) 12/27/16 08:17 Eos % (Auto) 0.0 % (0.0-4.0) 12/27/16 08:17 Baso % (Auto) 0.4 % (0.0-2.0) 12/27/16 08:17 Neut # 12.4 K/uL (1.8-7.0) H 12/27/16 08:17 Lymph # 0.7 K/uL (1.0-4.3) L 12/27/16 08:17 [place] # 0.3 K/uL (0.0-0.8) 12/27/16 08:17 Eos # 0.0 K/uL (0.0-0.7) 12/27/16 08:17 Baso # 0.1 K/uL (0.0-0.2) 12/27/16 08:17 Neutrophils % (Manual) 88 % (50-75) H 12/27/16 08:17 Band Neutrophils % 4 % (0-2) H 12/27/16 08:17 Lymphocytes % (Manual) 7 % (20-40) L 12/27/16 08:17 Monocytes % (Manual) 1 % (0-10) 12/27/16 08:17 Platelet Estimate Normal (NORMAL) 12/27/16 08:17 RBC Morphology Normal 12/27/16 08:17 Poikilocytosis (manual Slight 12/26/16 11:23 Anisocytosis (manual) Slight 12/26/16 11:23 Sodium 137 mmol/L (132-148) 12/27/16 08:17 Potassium 3.9 mmol/L (3.6-5.2) 12/27/16 08:17 Chloride 101 mmol/L (98-107) 12/27/16 08:17 Carbon Dioxide 23 mmol/L (22-30) 12/27/16 08:17 Anion Gap 18 (10-20) 12/27/16 08:17 BUN 18 mg/dL (7-17) H 12/27/16 08:17 Creatinine 0.6 mg/dL (0.7-1.2) L 12/27/16 08:17 Est GFR ( Amer) > 60 12/27/16 08:17 Est GFR (Non-Af Amer) > 60 12/27/16 08:17 Random Glucose 165 mg/dL (65-105) H 12/27/16 08:17 Calcium 8.7 mg/dl (8.6-10.4) 12/27/16 08:17 Total Bilirubin 0.6 mg/dL (0.2-1.3) 12/27/16 08:17 AST 28 U/L (14-36) 12/27/16 08:17 ALT 54 U/L (9-52) H 12/27/16 08:17 Alkaline Phosphatase 92 U/L (38-126) 12/27/16 08:17 NT-Pro-B Natriuret Pep 181 pg/mL (0-900) 12/25/16 11:56 Total Protein 7.7 g/dL (6.3-8.3) 12/27/16 08:17 Albumin 4.2 g/dL (3.5-5.0) 12/27/16 08:17 Globulin 3.5 gm/dL (2.2-3.9) 12/27/16 08:17 Albumin/Globulin Ratio 1.2 (1.0-2.1) 12/27/16 08:17 IgE 1124 kU/L (<rh=043) H 12/25/16 07:54 Ur L.pneumophila Ag Negative (NEGATIVE) 12/26/16 11:23 Mycoplasma pneumon IgM Negative (NEGATIVE) 12/26/16 11:10 Attending/Attestation - Attestation I have personally seen and examined this patient.: Yes I have fully participated in the care of the patient.: Yes I have reviewed all pertinent clinical information, including history, physical exam and plan: Yes Notes (Text): Patient seen, examined, and case discussed with day-time resident. Patient reports breathing has improved and tapered off steroids. Repeat chest xray shows no active disease. Echocardiogram is essentially normal. Mycoplasma IgM and legionella are negative. Discharge order and plan discussed with patient at bedside with assistance of Romansh-speaking nurse, Sherice. Voucher provided to the patient to help subsidize cost of medications but patient elected to use her outpatient pharmacy. Patient recommended to follow-up in the clinic for her outpatient flu and pneumonia vaccine once she completed her antibiotic until discharge. Medications upon discharge include: 1) Albuterol HFA [Ventolin HFA 90 mcg/actuation (8 g)] 1 puff IH Q6H PRN #1 inhaler PRN Reason: Shortness Of Breath 2) amLODIPine [Norvasc] 5 mg PO DAILY #30 tab/ 0 refill 3) Azithromycin [Z-Rocky] 250 mg PO DAILY #6 tab 4) Montelukast [Singulair] 10 mg PO HS #30 tab 5) predniSONE [predniSONE Tab] 20 mg PO BID 5 Days tab 6) Promethazine/Codeine [Phenergan/Codeine Oral Syrup] 5 ml PO Q4H PRN #120 udc PRN Reason: Cough Patient is medically stable for discharge. Discharge instructions reviewed and discussed with patient at bedside. This is a summary of patient's hospitalization. Please see EMR for further details Discharge Diagnoses: 1) Shortness of breath==>Resolved Bronchitis===>resolved * Sputum culture: normal * fmycoplasma ab serology: negative, legionella ab urine: negative * Blood cultures (12/24/16): no growth X48 hours X2 * Rocephin 1 gram IV Q12h (active since 12/26/16) * Azithromycin 500mg IVPB (active since 12/26/16) * Solumerol 40mg IVQ12H-->switched to Prednisone 40mg PO daily for 5 days * Singulair 10mg QHS * elevated IgE-->suggesting allergic component * BNP 181 * echocardiogram completed official report available on EMR 2) HTN, history * Continue home medication Amlodipine 5mg POQDaily 3) Gastritis, history * Protonix 40mg PO daily for GI ppx 4) Prophylactic care * Lovenox 40mg subqaily for DVT ppx * Protonix 40mg PO daily for GI ppx
== END 2016-12-27 18:44 | disposition home or self-care (01) | DRG 96 ==
LOC: C.ER 12:01 → C.9E 16:52 → C.3T 19:11 → OBSVTOIN 12-26 09:30
PROVIDERS: ADMIT Hospitalist; ATTEND Hospitalist
DX: J45.909 Unspecified asthma, uncomplicated (principal); E87.6 Hypokalemia; I10 Essential (primary) hypertension

== ENCOUNTER 2018-05-30 15:39 | Inpatient (IN) | payer MEDICAID, OTHER ==
--- NOTE | 2018-05-30 15:49 | C.PDOC ---
History Of Present Illness 57 y/o female with a PMHx of HTN presents to the ED for evaluation of right- sided weakness that developed earlier this afternoon. Patient admits 5 days ago she had episode dizziness, which lasted a little while and resolved on its own. After patient noted eye irritation and increased tearing, but her vision remained clear. Patient reports she felt tired this morning, but no focal weakness. Around 2:00pm, patient was walking when she felt her legs had become weak and then her right arm felt weak. She now complains of persistent right arm and right leg weakness since 2 oclock. On arrival extremities are not flaccid, no paralysis. Patient is additionally complaining of stabbing left-sided chest pain that began today. She has no associated SOB, fevers, nausea, vomiting, abdominal pain, numbness, tingling, dizziness, or other complaints at present. Time Seen by Provider: 05/30/18 15:49 Chief Complaint (Nursing): Weakness/Neurological Deficit History Per: Patient History/Exam Limitations: no limitations Onset/Duration Of Symptoms: Hrs Current Symptoms Are (Timing): Still Present Past Medical History Reviewed: Historical Data, Nursing Documentation, Vital Signs - Medical History PMH: Gastritis, HTN, Pneumonia Denies: Chronic Kidney Disease - [facility] Procedures EXCISION OF ASCENDING COLON, ENDO (10/20/15) Family History: States: Unknown Family Hx - Social History Hx Tobacco Use: No Hx Alcohol Use: No Hx Substance Use: No - Immunization History Hx Tetanus Toxoid Vaccination: No Hx Influenza Vaccination: No Hx Pneumococcal Vaccination: Yes Review Of Systems Constitutional: Negative for: Fever, Chills Eyes: Negative for: Vision Change Cardiovascular: Positive for: Chest Pain. Negative for: Palpitations Respiratory: Negative for: Shortness of Breath Gastrointestinal: Negative for: Nausea, Vomiting, Diarrhea Musculoskeletal: Negative for: Back Pain, Leg Pain Neurological: Positive for: Weakness (right arm, right leg). Negative for: Numbness, Change in Speech, Confusion, Headache, Dizziness, Other (facial droop) Physical Exam - Physical Exam Appears: Non-toxic, No Acute Distress Skin: Warm, Dry Head: Atraumatic, Normacephalic Eye(s): bilateral: Normal Inspection (Gaze is normal), PERRL, EOMI Nose: Normal Oral Mucosa: Moist Neck: Normal ROM Chest: Symmetrical, No Tenderness Cardiovascular: Rhythm Regular, No Murmur Respiratory: No Accessory Muscle Use, No Rhonchi, Wheezing (Diffuse), Other (No respiratory distress) Gastrointestinal/Abdominal: Soft, No Tenderness, No Distention Extremity: Bilateral: Atraumatic, Normal Color And Temperature Pulses: Left Dorsalis Pedis: Normal, Right Dorsalis Pedis: Normal Neurological/Psych: Normal Cranial Nerves, Normal Sensation, Other (Right arm and leg weakness, 2+/5 compared to left; No ataxia; Patient awake and alert) Gait: With Assistance Other Neurological Findings: No Facial Palsy ED Course And Treatment - Laboratory Results Result Diagrams: 05/30/18 16:32 05/30/18 16:32 Lab Interpretation: No Acute Changes ECG: Interpreted By Fl ECG Rhythm: Sinus Rhythm (with Q waves III, AVF) ECG Interpretation: No Acute Changes O2 Sat by Pulse Oximetry: 96 (RA) Pulse Ox Interpretation: Normal - CT Scan/US Head CT Other Rad Studies (CT/US): Read By Radiologist, Radiology Report Reviewed CT/US Interpretation: Accession No. : [id number]. Patient Name / ID : LARS VALENTINTO / [id number]. Exam Date : 05/30/2018 16:08:17 ( Approved ). Study Comment : Sex / Age : F / 57Y. Creator : Melinda De Jesus. Dictator : Kenisha Pritchard MD. Fulling Machine Operator : Stuffer : Kenisha Pritchard MD. Approver2 : Report Date : 05/30/2018 16:12:37. My Comment : . This report is currently processing and HAS NOT BEEN OFFICIALLY SIGNED BY THE PHYSICIAN - ESTIMATED TIME OF APPROVAL IS 05/30/2018 16:23. Date of service: 05/30/2018. PROCEDURE: CT HEAD WITHOUT CONTRAST. HISTORY: Code Stroke, lower extremity weakness. COMPARISON: None available. TECHNIQUE: Axial computed tomography images were obtained through the head/brain without intravenous contrast. Radiation dose: Total exam DLP = 1087.82 mGy-cm. This CT exam was performed using one or more of the following dose reduction techniques: Automated exposure control, adjustment of the mA and/or kV according to patient size, and/or use of iterative reconstruction technique. FINDINGS: HEMORRHAGE: There is focal 2.1 x 1.3 centimeter acute parenchymal hemorrhage at the left basal ganglia coronal radiata surrounding with small edema noted. Findings likely represent hypertensive parenchymal hemorrhage. BRAIN: No evidence of significant mass effect or midline shift. No atrophy or chronic microvascular ischemic changes. VENTRICLES: Unremarkable. No hydrocephalus. CALVARIUM: Unremarkable. PARANASAL SINUSES: Unremarkable as visualized. No significant inflammatory changes. MASTOID AIR CELLS: Unremarkable as visualized. No inflammatory changes. OTHER FINDINGS: None. IMPRESSION: 2.1 x 1.3 centimeter acute parenchymal hemorrhage at the left basal ganglia coronal radiata. Above findings reported to referring physician Dr. Barron in the emergency room at 4:12 p.m. on 05/30/2018 Head/Neck CTA Other Rad Studies (CT/US): Read By Radiologist, Radiology Report Reviewed CT/US Interpretation: Accession No. : [id number]. Patient Name / ID : LARS WRIGHTTO / [id number]. Exam Date : 05/30/2018 16:26:56 ( Approved ). Study Comment : Sex / Age : F / 57Y. Creator : Melinda De Jesus. Dictator : Kenisha Pritchard MD. Fulling Machine Operator : Stuffer : Kenisha Pritchard MD. Approver2 : Report Date : 05/30/2018 16:34:28. My Comment : . Date of service: 05/30/2018. PROCEDURE: CT Angiography of the Brain. HISTORY: intracranial bleeding. COMPARISON: None available. TECHNIQUE: CT angiography of the intracranial arteries was performed. Coronal and sagittal maximum intensity projection reformated images were generated. Radiation dose: Total exam DLP = 616.18 mGy-cm. This CT exam was performed using one or more of the following dose reduction techniques: Automated exposure control, adjustment of the mA and/or kV according to patient size, and/or use of iterative reconstruction technique. FINDINGS: RIGHT CAROTID ARTERIES: Common Carotid Artery: Normal. Carotid Bifurcation: Normal. Internal Carotid Artery:Normal. External Carotid Artery (proximal branches): Normal. LEFT CAROTID ARTERIES: Common Carotid Artery: Normal. Carotid Bifurcation: Normal. Internal Carotid Artery:Normal. External Carotid Artery (proximal branches): Normal. VERTEBRAL ARTERIES: Right Vertebral Artery: The V4 segment of the right vertebral artery is small in size. Left Vertebral Artery: Normal. INTERNAL CEREBRAL ARTERIES: Unremarkable. The skull base, petrous, cavernous and supraclinoid segments are bilaterally widely patent. ANTERIOR CEREBRAL ARTERIES: Unremarkable. A1 and A2 segments are widely patent. Smaller distal branches unremarkable, as visualized. MIDDLE CEREBRAL ARTERIES: Unremarkable. M1 and M2 segments are widely patent. Perisylvian branches grossly symmetric. POSTERIOR CIRCULATION: Basilar Artery: Unremarkable. Distal Vertebral Arteries: Unremarkable. Posterior Cerebral Arteries: Unremarkable. Posterior Inferior Cerebellar Arteries: Unremarkable. ANEURYSM/ VASCULAR MALFORMATIONS: None. OTHER FINDINGS: Again noted is focal parenchymal hematoma at the left basal ganglia coronal radiata. IMPRESSION: No evidence of arterial occlusion or critical focal stenosis. No evidence of aneurysm or vascular anomaly. Progress Note: Initiated Code Stroke work-up including CT Head, CXR, EKG, labs. Patient given NS IV fluids. 16:11 Received call from radiology, +intracranial hemorrhage on CT scan. Spoke with Dr. Poe, reviewed imaging, requests CTA and to page neurosurg. Spoke with Dr. Patel, made aware of findings. Discussed case with hospitalist Dr. Donaldson, accepts to service. NIHSS Stroke Scale - Date/Time Evaluation Performed Date Performed: 05/30/18 Time Performed: 15:55 When Was NIHSS Performed: Baseline - How Severe is the Stroke Level of Consciousness: 0=Alert LOC to Questions: 0=Both comments correct LOC to commands: 0=Obeys both correctly Best Gaze: 0=Normal Visual: 0=No visual loss Facial: 0=Normal Motor Arm - Left: 0=No drift Motor Arm - Right: 1=Drift noted before 10 sec Motor Leg - Left: 0=No drift Motor Leg - Right: 1=Drift before 5 sec Limb Ataxia: 0=Absent Best Language: 0=No aphasia Dysarthia: 0=Normal articulation Extinction & Inattention (Neglect): 0=Normal, no object Disposition - Disposition Disposition: HOSPITALIZED Disposition Time: 17:15 Condition: STABLE - POA Present On Arrival: None - Clinical Impression Clinical Impression: Intracranial hemorrhage - Scribe Statement The provider has reviewed the documentation as recorded by the Malou Guerrero Provider Attestation: All medical record entries made by the Malou were at my direction and personally dictated by me. I have reviewed the chart and agree that the record accurately reflects my personal performance of the history, physical exam, medical decision making, and the department course for this patient. I have also personally directed, reviewed, and agree with the discharge instructions and disposition.
[2018-05-30 15:52] VITALS: BMI 32.3
[2018-05-30] MEDS ORDERED: Iohexol 300 100 ML IJ ONE ×2 (16:01→16:24)
--- NOTE | 2018-05-30 16:21 | CT ---
Date of service: 05/30/2018 PROCEDURE: CT HEAD WITHOUT CONTRAST. HISTORY: Code Stroke, lower extremity weakness COMPARISON: None available. TECHNIQUE: Axial computed tomography images were obtained through the head/brain without intravenous contrast. Radiation dose: Total exam DLP = 1087.82 mGy-cm. This CT exam was performed using one or more of the following dose reduction techniques: Automated exposure control, adjustment of the mA and/or kV according to patient size, and/or use of iterative reconstruction technique. FINDINGS: HEMORRHAGE: There is focal 2.1 x 1.3 centimeter acute parenchymal hemorrhage at the left basal ganglia coronal radiata surrounding with small edema noted. Findings likely represent hypertensive parenchymal hemorrhage. BRAIN: No evidence of significant mass effect or midline shift. No atrophy or chronic microvascular ischemic changes. VENTRICLES: Unremarkable. No hydrocephalus. CALVARIUM: Unremarkable. PARANASAL SINUSES: Unremarkable as visualized. No significant inflammatory changes. MASTOID AIR CELLS: Unremarkable as visualized. No inflammatory changes. OTHER FINDINGS: None. IMPRESSION: 2.1 x 1.3 centimeter acute parenchymal hemorrhage at the left basal ganglia coronal radiata. Above findings reported to referring physician Dr. Barron in the emergency room at 4:12 p.m. on 05/30/2018
[2018-05-30 16:36] LABS: BASO % 0.7 % (0.0-2.0); EOS # 0.5 K/uL (0.0-0.7); EOS % 7.2 % (0.0-4.0); HEMOGLOBIN 15.2 g/dL (11.0-16.0); LYMPH # 1.9 K/uL (1.0-4.3); LYMPH % 29.4 % (20.0-40.0); MEAN CELL VOLUME 87.9 fL (81.0-99.0); MEAN CORPUSCULAR HEMOGLOBIN 28.9 pg (27.0-31.0); MEAN CORPUSCULAR HGB CONC 32.9 g/dL (33.0-37.0); MEAN PLATELET VOLUME 8.7 fL (7.2-11.7); MONO # 0.5 K/uL (0.0-0.8); MONO % 7.5 % (0.0-10.0); NEUT # 3.7 K/uL (1.8-7.0); NEUT % 55.2 % (50.0-75.0); NRBC % 0.1 % (0.0-2.0); RBC 5.27 Mil/uL (3.80-5.20); RED CELL DISTRIBUTION WIDTH 13.6 % (11.5-14.5); WHITE BLOOD COUNT 6.6 K/uL (4.8-10.8)
--- NOTE | 2018-05-30 16:47 | CP.PCM.CON ---
<Nolvia Holcomb P - Last Filed: 05/30/18 17:18> History of Present Illness - History of Present Illness History of Present Illness: Consult note for Dr. Poe. 57 year old female with PMHx of HTN and gastritis presents to ED complaining of R arm and leg weakness. She noticed the R leg weakness at approximately 9am, however states the weakness resolved on its own shortly after onset. At 2pm, patient again experienced R leg weakness accompanied by R arm weakness as well. She reports difficulty walking secondary to the leg weakness. Patient has never experienced these symptoms before. Denies dizziness, change in vision, slurred speech, nausea, numbness, weakness, loss of consciousness, shortness of breath and chest pain. PMHx: HTN, gastritis PSHx: evacuation of ectopic 20 years ago Meds: does not recall Allergies: NKDA Family Hx: mother with epilepsy, brother with diabetes and ESRD Social: denies tobacco, alcohol and illict drugs PMD: clinic in [place] Review of Systems - EENT Eyes: Discharge (clear), Irritation. absent: Change in Vision, Loss of Vision - Cardiovascular Cardiovascular: absent: Chest Pain, Diaphoresis, Dyspnea on Exertion, Leg Edema, Lightheadedness - Respiratory Respiratory: absent: Cough, Dyspnea, Hemoptysis, Dyspnea on Exertion, Snoring, Pain on Inspiration - Gastrointestinal Gastrointestinal: absent: Abdominal Pain, Change in Bowel Habits, Change in Stool Character, Excessive Flatus, Temesmus - Musculoskeletal Musculoskeletal: Limited Range of Motion, Muscle Weakness - Integumentary Integumentary: absent: Rash, Wounds - Neurological Neurological: Sensory Deficit, Weakness. absent: Abnormal Speech, Confusion, Dizziness, Headaches, Syncope - Psychiatric Psychiatric: absent: Auditory Hallucinations, Difficulty Concentrating, Mood Swings Past Patient History - Past Medical History & Family History Past Medical History?: Yes - Past Social History Smoking Status: Never Smoked - CARDIAC Hx Hypertension: Yes - PULMONARY Hx Pneumonia: Yes - NEUROLOGICAL Hx Neurological Disorder: No - HEENT Hx HEENT Problems: No - RENAL Hx Chronic Kidney Disease: No - ENDOCRINE/METABOLIC Hx Endocrine Disorders: No - HEMATOLOGICAL/ONCOLOGICAL Hx Blood Disorders: No - INTEGUMENTARY Hx Dermatological Problems: No - MUSCULOSKELETAL/RHEUMATOLOGICAL Hx Musculoskeletal Disorders: No Hx Falls: No - GASTROINTESTINAL Hx Gastritis: Yes - GENITOURINARY/GYNECOLOGICAL Hx Genitourinary Disorders: No - PSYCHIATRIC Hx Substance Use: No - SURGICAL HISTORY Hx Surgeries: Yes Other/Comment: ECTOPIC - ANESTHESIA Hx Anesthesia: Yes Hx Anesthesia Reactions: No Meds Allergies/Adverse Reactions: Allergies Allergy/AdvReac Type Severity Reaction Status Date / Time No Known Allergies Allergy Verified 05/30/18 15:52 - Medications Medications: Current Medications Sodium Chloride (Sodium Chloride 0.9%) 1,000 mls @ 100 mls/hr IV .Q10H DAVE Physical Exam - Constitutional Appears: Non-toxic, No Acute Distress - Head Exam Head Exam: ATRAUMATIC, NORMOCEPHALIC - Eye Exam Eye Exam: EOMI, Normal appearance, PERRL Additional comments: clear discharge bilaterally - ENT Exam ENT Exam: Mucous Membranes Moist - Neck Exam Neck exam: Positive for: Full Rom, Normal Inspection - Respiratory Exam Respiratory Exam: NORMAL BREATHING PATTERN. absent: Respiratory Distress - Extremities Exam Extremities exam: Positive for: normal inspection. Negative for: full ROM (R sided weakness) - Neurological Exam Neurological exam: Alert, CN II-XII Intact, Motor Sensory Deficit (R arm and R leg), Oriented x3 Additional comments: PERRL. Slight R facial Droop. Muscle strength 5/5 LUE and LLE, 1/5 RUE and 0/5 RLE. Diminished sensation to RUE and RLE. - Psychiatric Exam Psychiatric exam: Normal Affect, Normal Mood - Skin Skin Exam: Dry, Normal Color, Warm Results - Vital Signs Recent Vital Signs: Last Vital Signs Temp Pulse 86 05/30/18 15:52 Resp 18 05/30/18 15:52 BP 188/87 H 05/30/18 15:52 Pulse Ox 96 05/30/18 16:21 - Labs Result Diagrams: 05/30/18 16:32 05/30/18 16:32 Labs: Laboratory Results - last 24 hr 05/30/18 16:32 WBC 6.6 RBC 5.27 H Hgb 15.2 Hct 46.3 MCV 87.9 D MCH 28.9 MCHC 32.9 L RDW 13.6 Plt Count 237 MPV 8.7 Neut % (Auto) 55.2 Lymph % (Auto) 29.4 [place] % (Auto) 7.5 Eos % (Auto) 7.2 H Baso % (Auto) 0.7 Neut # (Auto) 3.7 Lymph # (Auto) 1.9 [place] # (Auto) 0.5 Eos # (Auto) 0.5 Baso # (Auto) 0.0 Assessment & Plan - Assessment and Plan (Free Text) Assessment: 57 year old female presents with R sided weakness Plan: -CT head:2.1 x1.3cm acute parenchymal hemorrhage at the L basal ganglia cadet radiata. -CTA head/neck: No arterial occlusion or critical focal stenosis. No evidence of aneurysm or vascular anomaly. -Neurosurgery consultation Further recs as per . Nolvia Holcomb, PGY-1 <Moreno Poe - Last Filed: 05/31/18 15:50> Meds - Medications Medications: Current Medications Sodium Chloride (Sodium Chloride 0.9%) 1,000 mls @ 100 mls/hr IV .Q10H DAVE Last Admin: 05/31/18 13:16 Dose: Not Given Nicardipine HCl 25 mg/ Sodium (Chloride) 250 mls @ 50 mls/hr IV .Q5H DAVE; Pro tocol Last Admin: 05/31/18 13:15 Dose: Not Given Influenza Virus Vaccine (Flucelvax Quad [id number] Syr) 60 mcg IM .ONCE ONE Stop: 06/02/18 10:01 Pantoprazole Sodium (Protonix Inj) 40 mg IVP DAILY DAVE Last Admin: 05/31/18 13:15 Dose: 40 mg Pneumococcal Polyvalent Vaccine (Pneumovax 23 Vaccine) 0.5 ml SC .ONCE ONE Stop: 06/02/18 10:01 Results - Vital Signs Recent Vital Signs: Last Vital Signs Temp 98.7 F 05/31/18 08:00 Pulse 90 05/31/18 14:10 Resp 13 05/31/18 14:10 BP 153/73 H 05/31/18 13:32 Pulse Ox 96 05/31/18 14:10 - Labs Result Diagrams: 05/31/18 06:19 05/31/18 06:19 Labs: Laboratory Results - last 24 hr 05/30/18 05/30/18 05/30/18 16:32 16:32 16:32 WBC 6.6 RBC 5.27 H Hgb 15.2 Hct 46.3 MCV 87.9 D MCH 28.9 MCHC 32.9 L RDW 13.6 Plt Count 237 MPV 8.7 Neut % (Auto) 55.2 Lymph % (Auto) 29.4 [place] % (Auto) 7.5 Eos % (Auto) 7.2 H Baso % (Auto) 0.7 Neut # (Auto) 3.7 Lymph # (Auto) 1.9 [place] # (Auto) 0.5 Eos # (Auto) 0.5 Baso # (Auto) 0.0 PT 11.4 INR 1.0 APTT 33 Sodium 143 Potassium 3.4 L Chloride 106 Carbon Dioxide 24 Anion Gap 17 BUN 13 Creatinine 0.5 L Est GFR ( Amer) > 60 Est GFR (Non-Af Amer) > 60 POC Glucose (mg/dL) Random Glucose 110 H Hemoglobin A1c Calcium 9.4 Phosphorus Magnesium Total Bilirubin 1.2 AST 47 H ALT 48 Alkaline Phosphatase 135 H D Troponin I < 0.0120 Total Protein 8.2 Albumin 4.8 Globulin 3.5 Albumin/Globulin Ratio 1.4 Triglycerides 196 H Cholesterol 157 LDL Cholesterol Direct 107 HDL Cholesterol 51 Influenza Typ A,B (EIA) Blood Type Antibody Screen 05/30/18 05/30/18 05/30/18 16:32 16:32 16:43 WBC RBC Hgb Hct MCV MCH MCHC RDW Plt Count MPV Neut % (Auto) Lymph % (Auto) [place] % (Auto) Eos % (Auto) Baso % (Auto) Neut # (Auto) Lymph # (Auto) [place] # (Auto) Eos # (Auto) Baso # (Auto) PT INR APTT Sodium Potassium Chloride Carbon Dioxide Anion Gap BUN Creatinine Est GFR ( Amer) Est GFR (Non-Af Amer) POC Glucose (mg/dL) 106 Random Glucose Hemoglobin A1c 5.6 Calcium Phosphorus Magnesium Total Bilirubin AST ALT Alkaline Phosphatase Troponin I Total Protein Albumin Globulin Albumin/Globulin Ratio Triglycerides Cholesterol LDL Cholesterol Direct HDL Cholesterol Influenza Typ A,B (EIA) Blood Type B POSITIVE Antibody Screen Negative 05/31/18 05/31/18 05/31/18 06:19 06:19 07:22 WBC 4.9 RBC 4.72 Hgb 13.7 Hct 41.7 MCV 88.4 MCH 29.1 MCHC 33.0 RDW 13.5 Plt Count 223 MPV 8.6 Neut % (Auto) 54.1 Lymph % (Auto) 29.6 [place] % (Auto) 7.7 Eos % (Auto) 8.0 H Baso % (Auto) 0.6 Neut # (Auto) 2.6 Lymph # (Auto) 1.4 [place] # (Auto) 0.4 Eos # (Auto) 0.4 Baso # (Auto) 0.0 PT INR APTT Sodium 139 Potassium 3.6 Chloride 107 Carbon Dioxide 27 Anion Gap 9 L BUN 10 Creatinine 0.4 L Est GFR ( Amer) > 60 Est GFR (Non-Af Amer) > 60 POC Glucose (mg/dL) 103 Random Glucose 96 Hemoglobin A1c Calcium 8.3 L Phosphorus 3.7 Magnesium 1.9 Total Bilirubin 1.3 AST 40 H ALT 35 Alkaline Phosphatase 94 Troponin I Total Protein 6.4 Albumin 3.6 Globulin 2.8 Albumin/Globulin Ratio 1.3 Triglycerides Cholesterol LDL Cholesterol Direct HDL Cholesterol Influenza Typ A,B (EIA) Blood Type Antibody Screen 05/31/18 05/31/18 10:23 11:30 WBC RBC Hgb Hct MCV MCH MCHC RDW Plt Count MPV Neut % (Auto) Lymph % (Auto) [place] % (Auto) Eos % (Auto) Baso % (Auto) Neut # (Auto) Lymph # (Auto) [place] # (Auto) Eos # (Auto) Baso # (Auto) PT INR APTT Sodium Potassium Chloride Carbon Dioxide Anion Gap BUN Creatinine Est GFR ( Amer) Est GFR (Non-Af Amer) POC Glucose (mg/dL) 114 H Random Glucose Hemoglobin A1c Calcium Phosphorus Magnesium Total Bilirubin AST ALT Alkaline Phosphatase Troponin I Total Protein Albumin Globulin Albumin/Globulin Ratio Triglycerides Cholesterol LDL Cholesterol Direct HDL Cholesterol Influenza Typ A,B (EIA) Negative for flu a/b Blood Type Antibody Screen Attending/Attestation - Attestation I have personally seen and examined this patient.: Yes I have fully participated in the care of the patient.: Yes I have reviewed all pertinent clinical information: Yes Notes (Text): I agree with the assessment and plan. I recommend controlling the BP, maintaining an elevated head position, avoiding hyperthermia, avoiding hyperglycemia. Will repeat CT head and follow exam.
[2018-05-30 16:49] LABS: ALB/GLOB RATIO 1.4 (1.0-2.1); ALBUMIN 4.8 g/dL (3.5-5.0); ALT/SGPT 48 U/L (9-52); AST/SGOT 47 U/L (14-36); BLOOD UREA NITROGEN 13 mg/dL (7-17); CALCIUM 9.4 mg/dl (8.6-10.4); GFR NON-AFRICAN AMERICAN > 60; HDL CHOLESTEROL 51 mg/dL (30-70)
[2018-05-30] MEDS ORDERED: Sodium Chloride 0.9% 1,000 ML ONE (16:49)
[2018-05-30 16:51] LABS: PROTHROMBIN TIME 11.4 SECONDS (9.7-12.2)
--- NOTE | 2018-05-30 16:52 | CT ---
Date of service: 05/30/2018 PROCEDURE: CT Angiography of the Brain. HISTORY: intracranial bleeding COMPARISON: None available. TECHNIQUE: CT angiography of the intracranial arteries was performed. Coronal and sagittal maximum intensity projection reformated images were generated. Radiation dose: Total exam DLP = 616.18 mGy-cm. This CT exam was performed using one or more of the following dose reduction techniques: Automated exposure control, adjustment of the mA and/or kV according to patient size, and/or use of iterative reconstruction technique. FINDINGS: RIGHT CAROTID ARTERIES: Common Carotid Artery: Normal. Carotid Bifurcation: Normal. Internal Carotid Artery:Normal. External Carotid Artery (proximal branches): Normal. LEFT CAROTID ARTERIES: Common Carotid Artery: Normal. Carotid Bifurcation: Normal. Internal Carotid Artery:Normal. External Carotid Artery (proximal branches): Normal. VERTEBRAL ARTERIES: Right Vertebral Artery: The V4 segment of the right vertebral artery is small in size. Left Vertebral Artery: Normal. INTERNAL CEREBRAL ARTERIES: Unremarkable. The skull base, petrous, cavernous and supraclinoid segments are bilaterally widely patent. ANTERIOR CEREBRAL ARTERIES: Unremarkable. A1 and A2 segments are widely patent. Smaller distal branches unremarkable, as visualized. MIDDLE CEREBRAL ARTERIES: Unremarkable. M1 and M2 segments are widely patent. Perisylvian branches grossly symmetric. POSTERIOR CIRCULATION: Basilar Artery: Unremarkable. Distal Vertebral Arteries: Unremarkable. Posterior Cerebral Arteries: Unremarkable. Posterior Inferior Cerebellar Arteries: Unremarkable. ANEURYSM/ VASCULAR MALFORMATIONS: None. OTHER FINDINGS: Again noted is focal parenchymal hematoma at the left basal ganglia coronal radiata. IMPRESSION: No evidence of arterial occlusion or critical focal stenosis. No evidence of aneurysm or vascular anomaly.
[2018-05-30] MEDS: Sodium Chloride 0.9% 1,000 ML IV SCH (16:56)
[2018-05-30 17:00] LABS: LDL CHOLESTEROL 107 mg/dL (0-129)
[2018-05-30] MEDS: niCARdipine IV 25 MG in Sodium Chloride 0.9% 240 ML IV SCH ×2 (17:05→22:47)
--- NOTE | 2018-05-30 19:15 | CP.PCM.HP ---
<Jayden Soto - Last Filed: 05/31/18 04:24> History of Present Illness - History of Present Illness History of Present Illness: 57 F w/ PMhx of HTN & gastritis presents to ED for R sided arm & leg weakness. Patient states weakness stated approximately 9 AM, with symptoms resolving for a short duration, but returning by mid afternoon. Pt reports never having these symptoms in the past. Patient denies headaches, vision changes, slurred speach, nausea, vomiting, numbness, weakness, chest pain, SOB, abdominal pain, diarrhea, constipation. Patient admits to a cough w/ yellow phlegm for the past 2-3 days w/ no fevers or chills. Patient admits to her children having a flu. Denies any recent travel. PMD: Dr. 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 FHx: brother w/ epilipsy and diabetes ,mother epilepsy Present on Admission - Present on Admission Any Indicators Present on Admission: No History of DVT/PE: No History of Uncontrolled Diabetes: No Urinary Catheter: No Decubitus Ulcer Present: No Review of Systems - Constitutional Constitutional: absent: Chills, Fever - EENT Eyes: absent: Blurred Vision, Change in Vision Ears: absent: Ear Discharge Nose/Mouth/Throat: absent: Nasal Discharge - Cardiovascular Cardiovascular: absent: Chest Pain, Chest Pain at Rest, Dyspnea - Respiratory Respiratory: Cough, Change in Mucous Color. absent: Dyspnea - Gastrointestinal Gastrointestinal: absent: Abdominal Pain, Constipation, Cramping, Diarrhea - Musculoskeletal Musculoskeletal: Abnormal Gait. absent: Arthralgias, Joint Swelling, Numbness, Stiffness - Neurological Neurological: Focal Weakness. absent: Numbness, Headaches - Psychiatric Psychiatric: absent: Anxiety, Confusion Past Patient History - Past Medical History & Family History Past Medical History?: Yes - Past Social History Smoking Status: Never Smoked - CARDIAC Hx Hypertension: Yes - PULMONARY Hx Pneumonia: Yes - NEUROLOGICAL Hx Neurological Disorder: No - HEENT Hx HEENT Problems: No - RENAL Hx Chronic Kidney Disease: No - ENDOCRINE/METABOLIC Hx Endocrine Disorders: No - HEMATOLOGICAL/ONCOLOGICAL Hx Blood Disorders: No - INTEGUMENTARY Hx Dermatological Problems: No - MUSCULOSKELETAL/RHEUMATOLOGICAL Hx Musculoskeletal Disorders: No Hx Falls: No - GASTROINTESTINAL Hx Gastritis: Yes - GENITOURINARY/GYNECOLOGICAL Hx Genitourinary Disorders: No - PSYCHIATRIC Hx Substance Use: No - SURGICAL HISTORY Hx Surgeries: Yes Other/Comment: ECTOPIC - ANESTHESIA Hx Anesthesia: Yes Hx Anesthesia Reactions: No Meds Allergies/Adverse Reactions: Allergies Allergy/AdvReac Type Severity Reaction Status Date / Time No Known Allergies Allergy Verified 05/30/18 15:52 Physical Exam - Constitutional Appears: Non-toxic - Head Exam Head Exam: NORMAL INSPECTION - Eye Exam Eye Exam: EOMI, Normal appearance, PERRL - ENT Exam ENT Exam: Mucous Membranes Moist Additional comments: Right sided facial slur - Neck Exam Neck exam: Negative for: Thyromegaly - Respiratory Exam Respiratory Exam: Clear to Auscultation Bilateral, NORMAL BREATHING PATTERN. absent: Rales, Rhonchi, Wheezes - Cardiovascular Exam Cardiovascular Exam: +S1, +S2. absent: Systolic Murmur - GI/Abdominal Exam GI & Abdominal Exam: Normal Bowel Sounds, Soft. absent: Distended, Firm, Guarding - Extremities Exam Extremities exam: Positive for: full ROM, normal inspection. Negative for: calf tenderness, pedal edema - Back Exam Back exam: absent: CVA tenderness (L), CVA tenderness (R) - Neurological Exam Neurological exam: Alert, Oriented x3 - Psychiatric Exam Psychiatric exam: Normal Affect, Normal Mood - Skin Skin Exam: Dry, Intact, Normal Color, Warm Results - Vital Signs Recent Vital Signs: Last Vital Signs Temp 98.1 F 05/30/18 17:22 Pulse 75 05/30/18 18:31 Resp 20 05/30/18 18:31 BP 132/59 L 05/30/18 18:31 Pulse Ox 96 05/30/18 18:31 - Labs Result Diagrams: 05/30/18 16:32 05/30/18 16:32 Labs: Laboratory Results - last 24 hr 05/30/18 05/30/18 05/30/18 16:32 16:32 16:32 WBC 6.6 RBC 5.27 H Hgb 15.2 Hct 46.3 MCV 87.9 D MCH 28.9 MCHC 32.9 L RDW 13.6 Plt Count 237 MPV 8.7 Neut % (Auto) 55.2 Lymph % (Auto) 29.4 [place] % (Auto) 7.5 Eos % (Auto) 7.2 H Baso % (Auto) 0.7 Neut # (Auto) 3.7 Lymph # (Auto) 1.9 [place] # (Auto) 0.5 Eos # (Auto) 0.5 Baso # (Auto) 0.0 PT 11.4 INR 1.0 APTT 33 Sodium 143 Potassium 3.4 L Chloride 106 Carbon Dioxide 24 Anion Gap 17 BUN 13 Creatinine 0.5 L Est GFR ( Amer) > 60 Est GFR (Non-Af Amer) > 60 POC Glucose (mg/dL) Random Glucose 110 H Hemoglobin A1c Calcium 9.4 Total Bilirubin 1.2 AST 47 H ALT 48 Alkaline Phosphatase 135 H D Troponin I < 0.0120 Total Protein 8.2 Albumin 4.8 Globulin 3.5 Albumin/Globulin Ratio 1.4 Triglycerides 196 H Cholesterol 157 LDL Cholesterol Direct 107 HDL Cholesterol 51 Blood Type Antibody Screen 05/30/18 05/30/18 05/30/18 16:32 16:32 16:43 WBC RBC Hgb Hct MCV MCH MCHC RDW Plt Count MPV Neut % (Auto) Lymph % (Auto) [place] % (Auto) Eos % (Auto) Baso % (Auto) Neut # (Auto) Lymph # (Auto) [place] # (Auto) Eos # (Auto) Baso # (Auto) PT INR APTT Sodium Potassium Chloride Carbon Dioxide Anion Gap BUN Creatinine Est GFR ( Amer) Est GFR (Non-Af Amer) POC Glucose (mg/dL) 106 Random Glucose Hemoglobin A1c 5.6 Calcium Total Bilirubin AST ALT Alkaline Phosphatase Troponin I Total Protein Albumin Globulin Albumin/Globulin Ratio Triglycerides Cholesterol LDL Cholesterol Direct HDL Cholesterol Blood Type B POSITIVE Antibody Screen Negative Assessment & Plan - Assessment and Plan (Free Text) Assessment: 57 F w/ PMhx of HTN & gastritis presents with R sided weakness, found to have hemorrhagic stroke Plan: Hemorrhagic Stroke - CT head: 2.1 X 1.3 cm acute parenchymal hemorrhage at left basal ganglia - CTA head neck: no stenosis - lipid panel: TGs 196, LDL 107, HDL 51 - hgA1c 5.6 - nicardipine drip to maintain SBP 140s - Neuro checks Q1H - NPO - Speech and swallow eval - F/u CT head repeat in AM - F/u neuro recs - F/u neurosurgery recs Hypertension - currently on nicardipine drip - titrate off in AM, switch to PO History of Gastritis - unsure of home medication - will require call to pharmacy in AM to confirm medication - protonix 40 IVP daily for now PPx - DVT: anticoags contradindicated - NPO until speech and swallow eval <John Butterfield - Last Filed: 05/31/18 06:28> Results - Vital Signs Recent Vital Signs: Last Vital Signs Temp 97.9 F 05/31/18 00:00 Pulse 66 05/31/18 02:10 Resp 12 05/31/18 02:10 BP 103/54 L 05/31/18 01:50 Pulse Ox 96 05/31/18 02:10 - Labs Result Diagrams: 05/30/18 16:32 05/30/18 16:32 Labs: Laboratory Results - last 24 hr 05/30/18 05/30/18 05/30/18 16:32 16:32 16:32 WBC 6.6 RBC 5.27 H Hgb 15.2 Hct 46.3 MCV 87.9 D MCH 28.9 MCHC 32.9 L RDW 13.6 Plt Count 237 MPV 8.7 Neut % (Auto) 55.2 Lymph % (Auto) 29.4 [place] % (Auto) 7.5 Eos % (Auto) 7.2 H Baso % (Auto) 0.7 Neut # (Auto) 3.7 Lymph # (Auto) 1.9 [place] # (Auto) 0.5 Eos # (Auto) 0.5 Baso # (Auto) 0.0 PT 11.4 INR 1.0 APTT 33 Sodium 143 Potassium 3.4 L Chloride 106 Carbon Dioxide 24 Anion Gap 17 BUN 13 Creatinine 0.5 L Est GFR ( Amer) > 60 Est GFR (Non-Af Amer) > 60 POC Glucose (mg/dL) Random Glucose 110 H Hemoglobin A1c Calcium 9.4 Total Bilirubin 1.2 AST 47 H ALT 48 Alkaline Phosphatase 135 H D Troponin I < 0.0120 Total Protein 8.2 Albumin 4.8 Globulin 3.5 Albumin/Globulin Ratio 1.4 Triglycerides 196 H Cholesterol 157 LDL Cholesterol Direct 107 HDL Cholesterol 51 Blood Type Antibody Screen 05/30/18 05/30/18 05/30/18 16:32 16:32 16:43 WBC RBC Hgb Hct MCV MCH MCHC RDW Plt Count MPV Neut % (Auto) Lymph % (Auto) [place] % (Auto) Eos % (Auto) Baso % (Auto) Neut # (Auto) Lymph # (Auto) [place] # (Auto) Eos # (Auto) Baso # (Auto) PT INR APTT Sodium Potassium Chloride Carbon Dioxide Anion Gap BUN Creatinine Est GFR ( Amer) Est GFR (Non-Af Amer) POC Glucose (mg/dL) 106 Random Glucose Hemoglobin A1c 5.6 Calcium Total Bilirubin AST ALT Alkaline Phosphatase Troponin I Total Protein Albumin Globulin Albumin/Globulin Ratio Triglycerides Cholesterol LDL Cholesterol Direct HDL Cholesterol Blood Type B POSITIVE Antibody Screen Negative Assessment & Plan - Date & Time Date: 05/31/18 (I have seen and examined the patient. I agree with the findings and plan of care as documented by Dr. Soto. Patient with hemorrhagic CVA. History of hypertension. Consult to neuro and neurosurg. Admit to ICU. Management as per ICU. Also with hypokalemia. Replete. Monitor for acute changes.) Time: 06:27 Attending/Attestation - Attestation I have personally seen and examined this patient.: Yes I have fully participated in the care of the patient.: Yes I have reviewed all pertinent clinical information: Yes
--- NOTE | 2018-05-30 22:01 | CP.PCM.CON ---
History of Present Illness - History of Present Illness History of Present Illness: 57 year old female with PMHx of HTN ,asthma and gastritis presents to ED complaining of R arm and leg weakness. She noticed the R leg weakness at approximately 9am, however states the weakness resolved on its own shortly after onset. At 2pm, patient again experienced R leg weakness accompanied by R arm weakness as well. She reports difficulty walking and fall secondary to the leg weakness.c/o numbness and could not feel her right and and foot. Patient has never experienced these symptoms before. Denies change in vision, slurred speech, nausea, numbness, weakness, loss of consciousness, shortness of breath ,nausea,vomiting and chest pain.c/o intermittent headaches associated with dizziness x 1 month History from patient via multi share program coordinator and daughter Review of Systems - Review of Systems Systems not reviewed;Unavailable: Language Barrier - Constitutional Constitutional: Weakness. absent: Fever Additional comments: weakness of right side - EENT Eyes: absent: Blurred Vision, Spots in Vision Ears: Dizziness. absent: Decreased Hearing Nose/Mouth/Throat: absent: Nasal Congestion, Sore Throat - Cardiovascular Cardiovascular: absent: Chest Pain, Leg Edema, Palpitations - Respiratory Respiratory: absent: Cough, Dyspnea - Gastrointestinal Gastrointestinal: absent: Abdominal Pain, Change in Bowel Habits - Genitourinary Genitourinary: absent: Difficulty Urinating, Dysuria - Musculoskeletal Musculoskeletal: Abnormal Gait. absent: Back Pain - Integumentary Integumentary: absent: Sores - Neurological Neurological: Dizziness - Endocrine Endocrine: absent: Fatigue, Polyuria - Hematologic/Lymphatic Hematologic: absent: Easy Bruising Past Patient History - Past Medical History & Family History Past Medical History?: Yes - Past Social History Smoking Status: Never Smoked Alcohol: None Drugs: Denies Home Situation {Lives}: With Family - CARDIAC Hx Hypertension: Yes - PULMONARY Hx Pneumonia: Yes - NEUROLOGICAL Hx Neurological Disorder: No - HEENT Hx HEENT Problems: No - RENAL Hx Chronic Kidney Disease: No - ENDOCRINE/METABOLIC Hx Endocrine Disorders: No - HEMATOLOGICAL/ONCOLOGICAL Hx Blood Disorders: No - INTEGUMENTARY Hx Dermatological Problems: No - MUSCULOSKELETAL/RHEUMATOLOGICAL Hx Musculoskeletal Disorders: No Hx Falls: No - GASTROINTESTINAL Hx Gastritis: Yes - GENITOURINARY/GYNECOLOGICAL Hx Genitourinary Disorders: No - PSYCHIATRIC Hx Substance Use: No - SURGICAL HISTORY Hx Surgeries: Yes Other/Comment: ECTOPIC - ANESTHESIA Hx Anesthesia: Yes Hx Anesthesia Reactions: No Meds Allergies/Adverse Reactions: Allergies Allergy/AdvReac Type Severity Reaction Status Date / Time No Known Allergies Allergy Verified 05/30/18 15:52 - Medications Medications: Current Medications Sodium Chloride (Sodium Chloride 0.9%) 1,000 mls @ 100 mls/hr IV .Q10H DAVE Last Admin: 05/30/18 16:56 Dose: 100 mls/hr Nicardipine HCl 25 mg/ Sodium (Chloride) 250 mls @ 50 mls/hr IV .Q5H DAVE; Protocol Last Admin: 05/30/18 17:05 Dose: 50 mls/hr Physical Exam - Constitutional Appears: No Acute Distress Additional comments: mild facial droop - Head Exam Head Exam: ATRAUMATIC, NORMAL INSPECTION, NORMOCEPHALIC - Eye Exam Eye Exam: EOMI, PERRL Pupil Exam: NORMAL ACCOMODATION - ENT Exam ENT Exam: Mucous Membranes Moist - Neck Exam Neck exam: Positive for: Normal Inspection - Respiratory Exam Respiratory Exam: Clear to Auscultation Bilateral, NORMAL BREATHING PATTERN - Cardiovascular Exam Cardiovascular Exam: REGULAR RHYTHM. absent: JVD - GI/Abdominal Exam GI & Abdominal Exam: Normal Bowel Sounds, Soft. absent: Tenderness - Extremities Exam Extremities exam: Positive for: normal inspection. Negative for: calf tenderness, pedal edema - Back Exam Back exam: NORMAL INSPECTION - Neurological Exam Neurological exam: Alert, Oriented x3 Additional comments: right sided weakness - Psychiatric Exam Psychiatric exam: Normal Affect - Skin Skin Exam: Normal Color, Warm Results - Vital Signs Recent Vital Signs: Last Vital Signs Temp 98.3 F 05/30/18 20:10 Pulse 73 05/30/18 20:10 Resp 20 05/30/18 18:31 BP 123/65 05/30/18 20:10 Pulse Ox 95 05/30/18 20:10 - Labs Result Diagrams: 05/30/18 16:32 05/30/18 16:32 Labs: Laboratory Results - last 24 hr 05/30/18 05/30/18 05/30/18 16:32 16:32 16:32 WBC 6.6 RBC 5.27 H Hgb 15.2 Hct 46.3 MCV 87.9 D MCH 28.9 MCHC 32.9 L RDW 13.6 Plt Count 237 MPV 8.7 Neut % (Auto) 55.2 Lymph % (Auto) 29.4 Williams % (Auto) 7.5 Eos % (Auto) 7.2 H Baso % (Auto) 0.7 Neut # (Auto) 3.7 Lymph # (Auto) 1.9 Williams # (Auto) 0.5 Eos # (Auto) 0.5 Baso # (Auto) 0.0 PT 11.4 INR 1.0 APTT 33 Sodium 143 Potassium 3.4 L Chloride 106 Carbon Dioxide 24 Anion Gap 17 BUN 13 Creatinine 0.5 L Est GFR ( Amer) > 60 Est GFR (Non-Af Amer) > 60 POC Glucose (mg/dL) Random Glucose 110 H Hemoglobin A1c Calcium 9.4 Total Bilirubin 1.2 AST 47 H ALT 48 Alkaline Phosphatase 135 H D Troponin I < 0.0120 Total Protein 8.2 Albumin 4.8 Globulin 3.5 Albumin/Globulin Ratio 1.4 Triglycerides 196 H Cholesterol 157 LDL Cholesterol Direct 107 HDL Cholesterol 51 Blood Type Antibody Screen 05/30/18 05/30/18 05/30/18 16:32 16:32 16:43 WBC RBC Hgb Hct MCV MCH MCHC RDW Plt Count MPV Neut % (Auto) Lymph % (Auto) Williams % (Auto) Eos % (Auto) Baso % (Auto) Neut # (Auto) Lymph # (Auto) Williams # (Auto) Eos # (Auto) Baso # (Auto) PT INR APTT Sodium Potassium Chloride Carbon Dioxide Anion Gap BUN Creatinine Est GFR ( Amer) Est GFR (Non-Af Amer) POC Glucose (mg/dL) 106 Random Glucose Hemoglobin A1c 5.6 Calcium Total Bilirubin AST ALT Alkaline Phosphatase Troponin I Total Protein Albumin Globulin Albumin/Globulin Ratio Triglycerides Cholesterol LDL Cholesterol Direct HDL Cholesterol Blood Type B POSITIVE Antibody Screen Negative - EKG Data EKG Interpreted by: Myself - Imaging and Cardiology Chest x-ray Status: Image reviewed by me Assessment & Plan - Assessment and Plan (Free Text) Assessment: 1.Hemorrhagic CVA with Right sided weakness CT head with 2.1 x 1.3 basal ganglia bleed Neurology evaluation noted f/u Rpt CT scan Neuro check 2.HTN-on Nicardipine drip for BP control 3.Asthma-bronchodilators PRN 4.Hypokalemia-replace
[2018-05-31] MEDS: Sodium Chloride 0.9% 1,000 ML IV SCH ×3 (02:11→13:16)
[2018-05-31] MEDS: niCARdipine IV 25 MG in Sodium Chloride 0.9% 240 ML IV SCH ×4 (04:17→18:01)
[2018-05-31 06:30] LABS: BASO % 0.6 % (0.0-2.0); EOS # 0.4 K/uL (0.0-0.7); HEMOGLOBIN 13.7 g/dL (11.0-16.0); LYMPH # 1.4 K/uL (1.0-4.3); LYMPH % 29.6 % (20.0-40.0); MEAN CELL VOLUME 88.4 fL (81.0-99.0); MEAN CORPUSCULAR HEMOGLOBIN 29.1 pg (27.0-31.0); MEAN PLATELET VOLUME 8.6 fL (7.2-11.7); MONO # 0.4 K/uL (0.0-0.8); MONO % 7.7 % (0.0-10.0); NEUT # 2.6 K/uL (1.8-7.0); NEUT % 54.1 % (50.0-75.0); NRBC % 0.1 % (0.0-2.0); RBC 4.72 Mil/uL (3.80-5.20); RED CELL DISTRIBUTION WIDTH 13.5 % (11.5-14.5); WHITE BLOOD COUNT 4.9 K/uL (4.8-10.8)
[2018-05-31 06:52] LABS: ALB/GLOB RATIO 1.3 (1.0-2.1); ALBUMIN 3.6 g/dL (3.5-5.0); ALT/SGPT 35 U/L (9-52); AST/SGOT 40 U/L (14-36); BLOOD UREA NITROGEN 10 mg/dL (7-17); CALCIUM 8.3 mg/dl (8.6-10.4); GFR NON-AFRICAN AMERICAN > 60
--- NOTE | 2018-05-31 09:30 | CP.CCUPN ---
CCU Subjective - Physician Review Subjective (Free Text): ICU Progress Note for Dr. Edwards 05/31/18 10:18 Pt seen and examined at bedside this am. Denies any acute complaints, reports R sided arm and leg weakness is a little improved compared to initial presentation yesterday. Reports minimal VALDOVINOS but improved compared to yesterday. Has not ambulated out of bed yet. Currently NPO, repeat CT results this am pending. Otherwise denies chest pain, sob, n/v/d/c, abd pain, urinary complaints, numbness/tingling in exts, or other symptoms. CCU Objective - Vital Signs / Intake & Output Vital Signs (Last 4 hours): Vital Signs Pulse Resp BP Pulse Ox 05/31/18 08:32 77 17 138/85 96 05/31/18 08:30 76 18 97 05/31/18 08:20 78 18 96 05/31/18 08:10 70 10 L 94 L 05/31/18 08:00 71 16 97 05/31/18 07:50 71 10 L 93 L 05/31/18 07:46 72 12 134/76 93 L 05/31/18 07:40 67 12 92 L 05/31/18 07:30 81 14 92 L 05/31/18 07:20 66 10 L 94 L 05/31/18 07:10 62 11 L 96 05/31/18 07:00 65 11 L 95 05/31/18 06:50 66 11 L 96 05/31/18 06:40 68 11 L 96 05/31/18 06:31 60 11 L 128/65 98 05/31/18 06:30 62 11 L 96 05/31/18 06:20 69 11 L 95 05/31/18 06:10 69 14 97 05/31/18 06:00 63 11 L 91 L 05/31/18 05:50 67 12 90 L 05/31/18 05:40 66 15 99 05/31/18 05:32 66 13 120/60 95 05/31/18 05:30 66 21 97 Intake and Output (Last 8hrs): Intake & Output 05/30/18 05/31/18 05/31/18 22:59 06:59 14:59 Intake Total 305.0 1002.5 100 Output Total 400 160 Balance -95.0 842.5 100 Weight 165 lb 11.2 oz 158 lb 11.2 oz Intake: IV 100 Intake, IV Amount 305.0 902.5 100 Left AC Y port 100 Left Antecubital 300 800 100 Left Wrist 5.0 2.5 0 Oral 0 0 0 Output: Urine 400 160 Urine, Voided 400 160 Emesis 0 0 Other: Voiding Method Bedpan # Voids Urine, Voided 1 1 # Bowel Movements 0 0 0 - Physical Exam Head: Positive for: Atraumatic, Normocephalic Pupils: Positive for: PERRL Extroacular Muscles: Positive for: EOMI Conjunctiva: Positive for: Normal Mouth: Positive for: Moist Mucous Membranes Neck: Positive for: Normal Range of Motion. Negative for: JVD, Lymphadenopathy Respiratory/Chest: Positive for: Clear to Auscultation, Good Air Exchange. Negative for: Respiratory Distress, Accessory Muscle Use Cardiovascular: Positive for: Normal S1, S2. Negative for: Murmurs, Rub, Gallop Abdomen: Positive for: Normal Bowel Sounds. Negative for: Tenderness, Di stention, Mass/Organomegaly Upper Extremity: Positive for: NORMAL PULSES, Neurovascularly Intact, Capillary Refill < 2s, Other (muscle strength 3/5 on RUE). Negative for: Cyanosis, Edema Lower Extremity: Positive for: NORMAL PULSES, Neurovascularly Intact, Capillary Refill < 2 s, Other (Muscle strength 3/5 on RLE). Negative for: Edema Neurological: Positive for: GCS=15, Speech Normal Skin: Positive for: Warm, Dry, Normal Color Psychiatric: Positive for: Alert, Oriented x 3 - Medications Active Medications: Active Medications Generic Name Dose Route Start Last Admin Trade Name Freq PRN Reason Stop Dose Admin Sodium Chloride 1,000 mls @ 100 mls/hr 05/30/18 16:00 05/31/18 05:05 Sodium Chloride 0.9% IV 100 mls/hr .Q10H DAVE Administration Nicardipine HCl 25 mg/ Sodium 250 mls @ 50 mls/hr 05/30/18 17:00 05/31/18 04:19 Chloride IV 0 mg/hr .Q5H DAVE 0 mls/hr Titration Protocol 5 MG/HR Influenza Virus Vaccine 60 mcg 06/02/18 10:00 Flucelvax Quad [id number] Syr IM 06/02/18 10:01 .ONCE ONE Pantoprazole Sodium 40 mg 05/31/18 10:00 Protonix Inj IVP DAILY DAVE - Patient Studies Lab Studies: Lab Studies 05/31/18 05/31/18 05/31/18 Range/Units 07:22 06:19 06:19 WBC 4.9 (4.8-10.8) K/uL RBC 4.72 (3.80-5.20) Mil/uL Hgb 13.7 (11.0-16.0) g/dL Hct 41.7 (34.0-47.0) % MCV 88.4 (81.0-99.0) fL MCH 29.1 (27.0-31.0) pg MCHC 33.0 (33.0-37.0) g/dL RDW 13.5 (11.5-14.5) % Plt Count 223 (130-400) K/uL MPV 8.6 (7.2-11.7) fL Neut % (Auto) 54.1 (50.0-75.0) % Lymph % (Auto) 29.6 (20.0-40.0) % [place]ferro % (Auto) 7.7 (0.0-10.0) % Eos % (Auto) 8.0 H (0.0-4.0) % Baso % (Auto) 0.6 (0.0-2.0) % Neut # (Auto) 2.6 (1.8-7.0) K/uL Lymph # (Auto) 1.4 (1.0-4.3) K/uL [place]ferro # (Auto) 0.4 (0.0-0.8) K/uL Eos # (Auto) 0.4 (0.0-0.7) K/uL Baso # (Auto) 0.0 (0.0-0.2) K/uL PT (9.7-12.2) SECONDS INR APTT (21-34) SECONDS Sodium 139 (132-148) mmol/L Potassium 3.6 (3.6-5.2) mmol/L Chloride 107 (98-107) mmol/L Carbon Dioxide 27 (22-30) mmol/L Anion Gap 9 L (10-20) BUN 10 (7-17) mg/dL Creatinine 0.4 L (0.7-1.2) mg/dL Est GFR ( Amer) > 60 Est GFR (Non-Af Amer) > 60 POC Glucose (mg/dL) 103 (65-110) mg/dL Random Glucose 96 (65-105) mg/dL Hemoglobin A1c (4.2-6.5) % Calcium 8.3 L (8.6-10.4) mg/dl Phosphorus 3.7 (2.5-4.5) mg/dL Magnesium 1.9 (1.6-2.3) mg/dL Total Bilirubin 1.3 (0.2-1.3) mg/dL AST 40 H (14-36) U/L ALT 35 (9-52) U/L Alkaline Phosphatase 94 (38-126) U/L Troponin I (0.00-0.120) ng/mL Total Protein 6.4 (6.3-8.3) g/dL Albumin 3.6 (3.5-5.0) g/dL Globulin 2.8 (2.2-3.9) gm/dL Albumin/Globulin Ratio 1.3 (1.0-2.1) Triglycerides (0-149) mg/dL Cholesterol (0-199) mg/dL LDL Cholesterol Direct (0-129) mg/dL HDL Cholesterol (30-70) mg/dL Blood Type Antibody Screen 05/30/18 05/30/18 05/30/18 Range/Units 16:43 16:32 16:32 WBC (4.8-10.8) K/uL RBC (3.80-5.20) Mil/uL Hgb (11.0-16.0) g/dL Hct (34.0-47.0) % MCV (81.0-99.0) fL MCH (27.0-31.0) pg MCHC (33.0-37.0) g/dL RDW (11.5-14.5) % Plt Count (130-400) K/uL MPV (7.2-11.7) fL Neut % (Auto) (50.0-75.0) % Lymph % (Auto) (20.0-40.0) % [place]ferro % (Auto) (0.0-10.0) % Eos % (Auto) (0.0-4.0) % Baso % (Auto) (0.0-2.0) % Neut # (Auto) (1.8-7.0) K/uL Lymph # (Auto) (1.0-4.3) K/uL [place]ferro # (Auto) (0.0-0.8) K/uL Eos # (Auto) (0.0-0.7) K/uL Baso # (Auto) (0.0-0.2) K/uL PT (9.7-12.2) SECONDS INR APTT (21-34) SECONDS Sodium (132-148) mmol/L Potassium (3.6-5.2) mmol/L Chloride (98-107) mmol/L Carbon Dioxide (22-30) mmol/L Anion Gap (10-20) BUN (7-17) mg/dL Creatinine (0.7-1.2) mg/dL Est GFR ( Amer) Est GFR (Non-Af Amer) POC Glucose (mg/dL) 106 (65-110) mg/dL Random Glucose (65-105) mg/dL Hemoglobin A1c 5.6 (4.2-6.5) % Calcium (8.6-10.4) mg/dl Phosphorus (2.5-4.5) mg/dL Magnesium (1.6-2.3) mg/dL Total Bilirubin (0.2-1.3) mg/dL AST (14-36) U/L ALT (9-52) U/L Alkaline Phosphatase (38-126) U/L Troponin I (0.00-0.120) ng/mL Total Protein (6.3-8.3) g/dL Albumin (3.5-5.0) g/dL Globulin (2.2-3.9) gm/dL Albumin/Globulin Ratio (1.0-2.1) Triglycerides (0-149) mg/dL Cholesterol (0-199) mg/dL LDL Cholesterol Direct (0-129) mg/dL HDL Cholesterol (30-70) mg/dL Blood Type B POSITIVE Antibody Screen Negative 05/30/18 05/30/18 05/30/18 Range/Units 16:32 16:32 16:32 WBC 6.6 (4.8-10.8) K/uL RBC 5.27 H (3.80-5.20) Mil/uL Hgb 15.2 (11.0-16.0) g/dL Hct 46.3 (34.0-47.0) % MCV 87.9 D (81.0-99.0) fL MCH 28.9 (27.0-31.0) pg MCHC 32.9 L (33.0-37.0) g/dL RDW 13.6 (11.5-14.5) % Plt Count 237 (130-400) K/uL MPV 8.7 (7.2-11.7) fL Neut % (Auto) 55.2 (50.0-75.0) % Lymph % (Auto) 29.4 (20.0-40.0) % [place]ro % (Auto) 7.5 (0.0-10.0) % Eos % (Auto) 7.2 H (0.0-4.0) % Baso % (Auto) 0.7 (0.0-2.0) % Neut # (Auto) 3.7 (1.8-7.0) K/uL Lymph # (Auto) 1.9 (1.0-4.3) K/uL [place]ferro # (Auto) 0.5 (0.0-0.8) K/uL Eos # (Auto) 0.5 (0.0-0.7) K/uL Baso # (Auto) 0.0 (0.0-0.2) K/uL PT 11.4 (9.7-12.2) SECONDS INR 1.0 APTT 33 (21-34) SECONDS Sodium 143 (132-148) mmol/L Potassium 3.4 L (3.6-5.2) mmol/L Chloride 106 (98-107) mmol/L Carbon Dioxide 24 (22-30) mmol/L Anion Gap 17 (10-20) BUN 13 (7-17) mg/dL Creatinine 0.5 L (0.7-1.2) mg/dL Est GFR ( Amer) > 60 Est GFR (Non-Af Amer) > 60 POC Glucose (mg/dL) (65-110) mg/dL Random Glucose 110 H (65-105) mg/dL Hemoglobin A1c (4.2-6.5) % Calcium 9.4 (8.6-10.4) mg/dl Phosphorus (2.5-4.5) mg/dL Magnesium (1.6-2.3) mg/dL Total Bilirubin 1.2 (0.2-1.3) mg/dL AST 47 H (14-36) U/L ALT 48 (9-52) U/L Alkaline Phosphatase 135 H D (38-126) U/L Troponin I < 0.0120 (0.00-0.120) ng/mL Total Protein 8.2 (6.3-8.3) g/dL Albumin 4.8 (3.5-5.0) g/dL Globulin 3.5 (2.2-3.9) gm/dL Albumin/Globulin Ratio 1.4 (1.0-2.1) Triglycerides 196 H (0-149) mg/dL Cholesterol 157 (0-199) mg/dL LDL Cholesterol Direct 107 (0-129) mg/dL HDL Cholesterol 51 (30-70) mg/dL Blood Type Antibody Screen Laboratory Results - last 24 hr 05/30/18 05/30/18 05/30/18 16:32 16:32 16:32 WBC 6.6 RBC 5.27 H Hgb 15.2 Hct 46.3 MCV 87.9 D MCH 28.9 MCHC 32.9 L RDW 13.6 Plt Count 237 MPV 8.7 Neut % (Auto) 55.2 Lymph % (Auto) 29.4 Tal[place]ferro % (Auto) 7.5 Eos % (Auto) 7.2 H Baso % (Auto) 0.7 Neut # (Auto) 3.7 Lymph # (Auto) 1.9 [place] # (Auto) 0.5 Eos # (Auto) 0.5 Baso # (Auto) 0.0 PT 11.4 INR 1.0 APTT 33 Sodium 143 Potassium 3.4 L Chloride 106 Carbon Dioxide 24 Anion Gap 17 BUN 13 Creatinine 0.5 L Est GFR ( Amer) > 60 Est GFR (Non-Af Amer) > 60 POC Glucose (mg/dL) Random Glucose 110 H Hemoglobin A1c Calcium 9.4 Phosphorus Magnesium Total Bilirubin 1.2 AST 47 H ALT 48 Alkaline Phosphatase 135 H D Troponin I < 0.0120 Total Protein 8.2 Albumin 4.8 Globulin 3.5 Albumin/Globulin Ratio 1.4 Triglycerides 196 H Cholesterol 157 LDL Cholesterol Direct 107 HDL Cholesterol 51 Blood Type Antibody Screen 05/30/18 05/30/18 05/30/18 16:32 16:32 16:43 WBC RBC Hgb Hct MCV MCH MCHC RDW Plt Count MPV Neut % (Auto) Lymph % (Auto) [place]ferro % (Auto) Eos % (Auto) Baso % (Auto) Neut # (Auto) Lymph # (Auto) [place] # (Auto) Eos # (Auto) Baso # (Auto) PT INR APTT Sodium Potassium Chloride Carbon Dioxide Anion Gap BUN Creatinine Est GFR ( Amer) Est GFR (Non-Af Amer) POC Glucose (mg/dL) 106 Random Glucose Hemoglobin A1c 5.6 Calcium Phosphorus Magnesium Total Bilirubin AST ALT Alkaline Phosphatase Troponin I Total Protein Albumin Globulin Albumin/Globulin Ratio Triglycerides Cholesterol LDL Cholesterol Direct HDL Cholesterol Blood Type B POSITIVE Antibody Screen Negative 05/31/18 05/31/18 05/31/18 06:19 06:19 07:22 WBC 4.9 RBC 4.72 Hgb 13.7 Hct 41.7 MCV 88.4 MCH 29.1 MCHC 33.0 RDW 13.5 Plt Count 223 MPV 8.6 Neut % (Auto) 54.1 Lymph % (Auto) 29.6 [place]ferro % (Auto) 7.7 Eos % (Auto) 8.0 H Baso % (Auto) 0.6 Neut # (Auto) 2.6 Lymph # (Auto) 1.4 [place]ro # (Auto) 0.4 Eos # (Auto) 0.4 Baso # (Auto) 0.0 PT INR APTT Sodium 139 Potassium 3.6 Chloride 107 Carbon Dioxide 27 Anion Gap 9 L BUN 10 Creatinine 0.4 L Est GFR ( Amer) > 60 Est GFR (Non-Af Amer) > 60 POC Glucose (mg/dL) 103 Random Glucose 96 Hemoglobin A1c Calcium 8.3 L Phosphorus 3.7 Magnesium 1.9 Total Bilirubin 1.3 AST 40 H ALT 35 Alkaline Phosphatase 94 Troponin I Total Protein 6.4 Albumin 3.6 Globulin 2.8 Albumin/Globulin Ratio 1.3 Triglycerides Cholesterol LDL Cholesterol Direct HDL Cholesterol Blood Type Antibody Screen Radiology Impressions: Radiology Impressions Head CT 05/30/18 15:54 IMPRESSION: 2.1 x 1.3 centimeter acute parenchymal hemorrhage at the left basal ganglia coronal radiata. Above findings reported to referring physician Dr. Barron in the emergency room at 4:12 p.m. on 05/30/2018 Head/Neck CTA 05/30/18 16:20 IMPRESSION: No evidence of arterial occlusion or critical focal stenosis. No evidence of aneurysm or vascular anomaly. EKG/Cardiology Studies: Cardiology / EKG Studies 05/30/18 15:54 ELECTROCARDIOGRAM Stat Comment: 5 Mode Of Transportation: STRETCHER Reason For Exam: right sided weakness with chest pain 05/30/18 16:51 EKG [ELECTROCARDIOGRAM] Routine Comment: Mode Of Transportation: BED Reason For Exam: CP Fingerstick Blood Sugar Results: 116 Review of Systems - Constitutional Constitutional: absent: Fever, Chills, Sweats - Cardiovascular Cardiovascular: absent: Chest Pain, Dyspnea on Exertion, Pain Radiating to Arm/Neck/Jaw, Leg Edema, Palpitations, Syncope - Respiratory Respiratory: absent: Cough, Dyspnea, Dyspnea on Exertion, Wheezing - Gastrointestinal Gastrointestinal: absent: Abdominal Pain, Constipation, Diarrhea, Nausea, Vomiting - Musculoskeletal Musculoskeletal: Muscle Weakness. absent: Numbness, Tingling - Neurological Neurological: Weakness. absent: Confusion, Dizziness, Numbness, Tingling, Tremor Critical Care Progress Note - Nutrition Nutrition: Nutrition Category Date Time Status NPO Diet [DIET] Diets 05/30/18 Dinner Active Assessment/Plan - Assessment and Plan (Free Text) Assessment: 57 y o female with PMhx HTN, gastritis who presented to the ED with R-sided arm and leg weakness. Admitted to ICU for Hemorrhagic CVA with R-sided weakness. Plan: Neuro: -AAOx3 on exam today -R-sided weakness demonstrated on exam -CT head on admission demonstrated 2.1 x 1.3 cm acute parenchymal hemorrhage at L basal ganglia -Repeat CT done this am, results pending -Head/neck CTA: no arterial occlusion or critical focal stenosis -Neuro checks -Neurology consulted, eDepika Garcia, recs appreciated -Neurosurgery consulted, Dr. Whitmore, recs appreciated Cardio: -Vitals stable -TGs 196, LDL 107, HDL 51 -HgA1c 5.6 -Trop neg x1 on admission -Nicardipine drip d/c'd, switch to PO -Hx HTN -NPO, pending speech and swallow eval -C/w IVF GI: -Hx gastritis -C/w Protonix daily Heme: -H/H 13.7/41.2, stable, cont to monitor -No leukocytosis Renal: -Bun/Cr: 10/0.4 -Cont to trend I's/O's, no acute issues at this time PPX: -DVT pharm ppx contraindicated for acute bleed, currently on SCDs -GI ppx: Protonix -NPO for speech and swallow eval -PT eval ordered Pt seen, examined with, and plan discussed with Dr. Edwards, attending physician. Kristofer Fenton DO PGY-1, [employer] Pager #[phone]
--- NOTE | 2018-05-31 11:14 | RAD ---
Date of service: 05/30/2018 HISTORY: Code Stroke COMPARISON: 12/26/2016 FINDINGS: LUNGS: No active pulmonary disease. The prior horizontal oval opacity in the left mid to lower lung zone is no longer seen PLEURA: No significant pleural effusion identified, no pneumothorax apparent. CARDIOVASCULAR: No aortic atherosclerotic calcification present. Probable top-normal heart size. No pulmonary vascular congestion. OSSEOUS STRUCTURES: No significant abnormalities. VISUALIZED UPPER ABDOMEN: Normal. OTHER FINDINGS: None. IMPRESSION: No interval acute cardiopulmonary pathology noted. Prior left mid to lower lung zone oval opacity cleared/resolved.
--- NOTE | 2018-05-31 11:54 | PCM.STROKE ---
Interval History Stroke Date: 05/30/18 No other interval changes in current, PMHx, FHx, SocHx, ROS: other than on note by: (initial neuro consult note) - Treatment DVT Prophylaxis: Sequential compression device in place bilaterally - Education Written Stroke Education provided regarding: personal risk factors, stroke warning sign/symptoms, how to activate emergency medical services, need to follow up after discharge Hx Atrial Fibrillation: No Hx Atrial Flutter: No - Therapy Notes Speech therapy notes date reviewed: 05/31/18 I have reviewed care of the patient with: Dr. Poe NIHSS Stroke Scale - Date/Time Evaluation Performed Date Performed: 05/31/18 Time Performed: 11:58 When Was NIHSS Performed: 24 hours post onset S/S - How Severe is the Stroke Level of Consciousness: 0=Alert LOC to Questions: 0=Both comments correct LOC to commands: 0=Obeys both correctly Best Gaze: 0=Normal Visual: 0=No visual loss Facial: 0=Normal Motor Arm - Left: 0=No drift Motor Arm - Right: 1=Drift noted before 10 sec Motor Leg - Left: 0=No drift Motor Leg - Right: 1=Drift before 5 sec Limb Ataxia: 0=Absent Sensory: 1=Mild to moderate loss (RUE, RLE, and right side of face decreased sensation) Best Language: 0=No aphasia Dysarthia: 0=Normal articulation Extinction & Inattention (Neglect): 0=Normal, no object Score: 3 Exam - Vital Sign Vital Signs: Temp Pulse Resp BP Pulse Ox 98.7 F 67 17 131/75 92 L 05/31/18 08:00 05/31/18 11:00 05/31/18 11:00 05/31/18 10:43 05/31/18 10:20 Constitutional: No distress, Normal appearing Ophthalmoscopic: absent: papilledema, hemorrhage Right Pupil: Reactive Right Pupil Size (in mm): 2 Left Pupil: Reactive Left Pupil Size (in mm): 2 Cardiovascular: Regular rate & rhythm Mental Status: Normal: Orientation, Memory, Attention, Language, Fund of Knowledge Cranial Nerve: Normal: Visual Mary, Extraocular movement intact, Facial Strength, Hearing, Palate/Tongue Movement. Abnormal: Facial Sensation (decreased sensation to right side of face) Motor: Tone Neuro motor strength exam: Left Upper Extremity: 5 (pbx supervisor 5/5), Right Upper Extremity: 3 (pbx supervisor 3/5), Left Lower Extremity: 5 (plantar flexion 5/5), Right Lower Extremity: 3 (plantar flexion 3/5) Sensation: absent: Intact to pin (decreased sensation too RUE and RLE compared to left side), Vibration DTR: Patellar Left: 1+, Patellar Right: 1+ Flexor Plantar Reflex: Normal Coordination: absent: Finger/nose (dysmetria on right), Heel/Smith (abnormal on right) Gait: Other (gait not assessed 2/2 weakness to RLE, fall risk) Vascular Risk: Hypertension, Lipids - Data reviewed Laboratory results: 05/31/18 06:19 05/31/18 06:19 Triglycerides 196 mg/dL (0-149) H 05/30/18 16:32 Cholesterol 157 mg/dL (0-199) 05/30/18 16:32 LDL Cholesterol Direct 107 mg/dL (0-129) 05/30/18 16:32 HDL Cholesterol 51 mg/dL (30-70) 05/30/18 16:32 Hemoglobin A1c 5.6 % (4.2-6.5) 05/30/18 16:32 Assessment and Plan (1) Hemorrhagic stroke Assessment & Plan: Imaging reviewed: -CT Head (repeat; 05/31/18): pending -CTA Head and Neck (05/30/18): No evidence of arterial occlusion or critical focal stenosis. No evidence of aneurysm or vascular anomaly. -CT Head (05/30/18): 2.1 x 1.3 centimeter acute parenchymal hemorrhage at the left basal ganglia coronal radiata. -Pending repeat CT Head results---will f/u. -PT/OT/ST -Continue BP control -Neurosurgery on the case. -Continue to hold antiplatelets and AC. -Notify neuro team of any acute changes in pt's condition. Maegan Salazar, ZENY, BIT SANDER Discussed with Dr. Poe Status: Acute
--- NOTE | 2018-05-31 12:01 | CT ---
Date of service: 05/31/2018 PROCEDURE: CT HEAD WITHOUT CONTRAST. HISTORY: hemorrhagic stroke COMPARISON: Noncontrast head CT performed 05/30/18 TECHNIQUE: Axial computed tomography images were obtained through the head/brain without intravenous contrast. Radiation dose: Total exam DLP = 1149.03 mGy-cm. This CT exam was performed using one or more of the following dose reduction techniques: Automated exposure control, adjustment of the mA and/or kV according to patient size, and/or use of iterative reconstruction technique. FINDINGS: Mild streak artifact limits evaluation of the skull base. BRAIN: 2.0 x 1.2 cm left basal ganglia hemorrhage (previously approximately 1.6 x 1.0 cm) with mild associated edema. No evidence of significant mass effect or midline shift. No chronic microvascular ischemic changes evident. VENTRICLES: No hydrocephalus. CALVARIUM: Unremarkable. PARANASAL SINUSES: Unremarkable as visualized. No significant inflammatory changes. MASTOID AIR CELLS: Unremarkable as visualized. No inflammatory changes. OTHER FINDINGS: None. IMPRESSION: 2.0 x 1.2 cm left basal ganglia hemorrhage has mildly increased in size with mild associated edema.
--- NOTE | 2018-05-31 13:19 | CP.PCM.PN ---
Subjective - Date & Time of Evaluation Date of Evaluation: 05/31/18 Time of Evaluation: 13:05 - Subjective Subjective: Medical Attending Note: Patient seen and examined at bedside. Patient denies headache, reports blurry vision over the left eye, denies chest pain, denies cough, denies abdominal pain, denies nausea, denies vomitting, denies constipation. Patient is accompanied by daughter in law X2, and at bedside. Assistance in translation provided by icu nurse Sabiha. Objective - Vital Signs/Intake and Output Vital Signs (last 24 hours): Temp Pulse Resp BP Pulse Ox 98.7 F 67 17 131/75 92 L 05/31/18 08:00 05/31/18 11:00 05/31/18 11:00 05/31/18 10:43 05/31/18 10:20 Intake and Output: 05/31/18 05/31/18 06:59 18:59 Intake Total 1307.5 750 Output Total 560 Balance 747.5 750 - Medications Medications: Current Medications Sodium Chloride (Sodium Chloride 0.9%) 1,000 mls @ 100 mls/hr IV .Q10H [facility] Last Admin: 05/31/18 13:16 Dose: Not Given Nicardipine HCl 25 mg/ Sodium (Chloride) 250 mls @ 50 mls/hr IV .Q5H [facility]; Protocol Last Admin: 05/31/18 13:15 Dose: Not Given Influenza Virus Vaccine (Flucelvax Quad 3504-1607 Syr) 60 mcg IM .ONCE ONE Stop: 06/02/18 10:01 Pantoprazole Sodium (Protonix Inj) 40 mg IVP DAILY [facility] Last Admin: 05/31/18 13:15 Dose: 40 mg - Labs Labs: 05/31/18 06:19 05/31/18 06:19 PT 11.4 SECONDS (9.7-12.2) 05/30/18 16:32 INR 1.0 05/30/18 16:32 APTT 33 SECONDS (21-34) 05/30/18 16:32 - Constitutional Appears: Non-toxic, No Acute Distress - Head Exam Head Exam: NORMAL INSPECTION - Eye Exam Eye Exam: EOMI, PERRL. absent: Nystagmus, Scleral icterus - ENT Exam ENT Exam: Mucous Membranes Moist - Respiratory Exam Respiratory Exam: Clear to Ausculation Bilateral, NORMAL BREATHING PATTERN. abs ent: Rales, Rhonchi, Wheezes - Cardiovascular Exam Cardiovascular Exam: REGULAR RHYTHM, +S1, +S2 - GI/Abdominal Exam GI & Abdominal Exam: Soft, Normal Bowel Sounds. absent: Distended, Firm, Guarding, Rigid, Tenderness, Rebound - Extremities Exam Extremities Exam: absent: Pedal Edema, Tenderness - Neurological Exam Neurological Exam: Alert, Awake, Oriented x3 Additional comments: negative babinski bilatera decreased sensation over the right lower extremity strength 5/5 Rue and lue - Psychiatric Exam Psychiatric exam: Normal Affect, Normal Mood - Skin Skin Exam: Dry, Intact, Normal Color, Warm Assessment and Plan (1) Intracranial hemorrhage Assessment & Plan: Imaging: Ct head (05/30/18): 2.1 X 1.x3 cm acute parenchymal hemorrhage at the left basal ganglia coronal radiata. CT head/neck 05/30/18: no evidence of arterial occlusion or critical focal stenosis; no evidence of aneurysm or vascular anomaly CT head (05/31/18): 2.0 X1.2cm left basal ganglia hemorrhage has mildly increased in size with mild associated edema Neurosurgery (Dr. Perdomo) on case-->Discussed with ICU, no surgery intervention because it is deep basal ganglia bleed Neurology (Dr. Poe) on case-->help appreciated * Continue to hold antiplatelets and AC. Patient is on Cardene drip NS 100cc/hr Protonix 40mg IV qdaily Status: Acute (2) HTN (hypertension) Assessment & Plan: Patient is on Cardene drip Status: Chronic (3) Lipid disorder Assessment & Plan: mild elevated triglycerides a1c: impaired glucose tolerance Status: Acute (4) Gastritis Assessment & Plan: protonix 40mg IV q daily Status: Chronic (5) Prophylactic measure Assessment & Plan: Chemical anticoagulation held secondary to intracranial hemorrhage AC held secondary to intracranial hemorrhage Status: Acute
--- NOTE | 2018-05-31 15:40 | CARD ---
APPROVED REPORT Date of service: 05/31/2018 EXAM: Two-dimensional and M-mode echocardiogram with Doppler and color Doppler. RISK FACTORS Hypertension 2D DIMENSIONS IVSd1.1 (0.7-1.1cm)LVDd4.1 (3.9-5.9cm) PWd0.9 (0.7-1.1cm)LA Gptyqw01 (18-58mL) LVDs2.5 (2.5-4.0cm)FS (%) 37.9 % LVEF (%)68.5 (>50%)LVEF (Ramírez's)64.62 % M-Mode DIMENSIONS Left Atrium (MM)3.65 (2.5-4.0cm)IVSd1.14 (0.7-1.1cm) Aortic Root3.26 (2.2-3.7cm)LVDd4.84 (4.0-5.6cm) Aortic Cusp Exc.1.86 (1.5-2.0cm)PWd0.94 (0.7-1.1cm) FS (%) 43 %LVDs2.74 (2.0-3.8cm) LVEF (%)74 (>50%) Mitral Valve MV E Blfbpyzz39.2cm/sMV A Pozymbnn55.7cm/sE/A ratio0.7 TDI Lateral E' Peak V7.06cm/sMedial E' Peak V6.55cm/sE/Lateral E'9.1 E/Medial E'9.8 Tricuspid Valve TR Peak Botaoppq275al/sTR Peak Gr.13mmHg LEFT VENTRICLE The left ventricle is normal size. There is borderline concentric left ventricular hypertrophy. Left ventricle systolic function is normal. The Ejection Fraction is 65-70%. There is normal LV segmental wall motion. Transmitral Doppler flow pattern is Grade I-abnormal relaxation pattern. There is no ventricular septal defect visualized. RIGHT VENTRICLE The right ventricle is normal size. The right ventricular systolic function is normal. ATRIA The left atrium is mildly dilated. The right atrium size is normal. AORTIC VALVE The aortic valve is mildly sclerotic. The aortic valve is tri-cuspid. No aortic regurgitation is present. There is no aortic valvular stenosis. MITRAL VALVE The mitral valve is normal in structure. There is no evidence of mitral valve prolapse. There is no mitral valve regurgitation noted. TRICUSPID VALVE The tricuspid valve is normal in structure. There is trace tricuspid regurgitation. Right ventricular systolic pressure is estimated at less than 30 mmHg. There is no pulmonary hypertension. PULMONIC VALVE The pulmonic valve is not well visualized. There is no pulmonic valvular regurgitation. GREAT VESSELS The aortic root is normal in size. The ascending aorta is normal in size. The IVC is normal in size and collapses >50% with inspiration. PERICARDIAL EFFUSION There is no pericardial effusion. <Conclusion> There is borderline concentric left ventricular hypertrophy. Left ventricle systolic function is normal. The Ejection Fraction is 65-70%. Transmitral Doppler flow pattern is Grade I-abnormal relaxation pattern.
[2018-06-01] MEDS: Sodium Chloride 0.9% 1,000 ML IV SCH (04:30)
[2018-06-01 06:20] LABS: BASO % 0.4 % (0.0-2.0); EOS # 0.5 K/uL (0.0-0.7); EOS % 10.1 % (0.0-4.0); HEMOGLOBIN 14.3 g/dL (11.0-16.0); LYMPH # 1.1 K/uL (1.0-4.3); LYMPH % 23.2 % (20.0-40.0); MEAN CELL VOLUME 89.2 fL (81.0-99.0); MEAN CORPUSCULAR HEMOGLOBIN 28.9 pg (27.0-31.0); MEAN CORPUSCULAR HGB CONC 32.4 g/dL (33.0-37.0); MONO # 0.3 K/uL (0.0-0.8); MONO % 6.5 % (0.0-10.0); NEUT # 2.8 K/uL (1.8-7.0); NEUT % 59.8 % (50.0-75.0); NRBC % 0.1 % (0.0-2.0); RBC 4.97 Mil/uL (3.80-5.20); RED CELL DISTRIBUTION WIDTH 13.6 % (11.5-14.5); WHITE BLOOD COUNT 4.6 K/uL (4.8-10.8)
[2018-06-01 06:35] LABS: ALB/GLOB RATIO 1.4 (1.0-2.1); ALBUMIN 3.6 g/dL (3.5-5.0); ALT/SGPT 36 U/L (9-52); AST/SGOT 33 U/L (14-36); BLOOD UREA NITROGEN 11 mg/dL (7-17); CALCIUM 8.5 mg/dl (8.6-10.4); GFR NON-AFRICAN AMERICAN > 60
--- NOTE | 2018-06-01 07:19 | CP.PCM.PN ---
Subjective - Date & Time of Evaluation Date of Evaluation: 06/01/18 Time of Evaluation: 07:10 - Subjective Subjective: Medical Attending Note: patient seen and examined. Patient denies headache, reports dry cough, denies chest pain, denies abdominal pain, denies nausea, had a bowel movement, reports strength over the right lower extremity is improving. Patient reports she feels hot flashes because of menopause. patient reports running eyes over the left eye. Objective - Vital Signs/Intake and Output Vital Signs (last 24 hours): Temp Pulse Resp BP Pulse Ox 97.9 F 60 11 L 131/78 95 05/31/18 16:00 06/01/18 04:50 06/01/18 04:50 06/01/18 04:31 06/01/18 04:10 Intake and Output: 06/01/18 06/01/18 06:59 18:59 Intake Total 1120 Output Total 400 Balance 720 - Medications Medications: Current Medications Acetaminophen (Tylenol 325mg Tab) 650 mg PO Q6 PRN PRN Reason: Pain, moderate (4-7) Last Admin: 05/31/18 18:02 Dose: 650 mg Sodium Chloride (Sodium Chloride 0.9%) 1,000 mls @ 100 mls/hr IV .Q10H [facility] Last Admin: 06/01/18 04:30 Dose: 100 mls/hr Nicardipine HCl 25 mg/ Sodium (Chloride) 250 mls @ 50 mls/hr IV .Q5H [facility]; Protocol Last Titration: 05/31/18 18:30 Dose: 0 mg/hr, 0 mls/hr Influenza Virus Vaccine (Flucelvax Quad 3904-0016 Syr) 60 mcg IM .ONCE ONE Stop: 06/02/18 10:01 Pantoprazole Sodium (Protonix Inj) 40 mg IVP DAILY [facility] Last Admin: 05/31/18 13:15 Dose: 40 mg Pneumococcal Polyvalent Vaccine (Pneumovax 23 Vaccine) 0.5 ml SC .ONCE ONE Stop: 06/02/18 10:01 Potassium Chloride (K-Dur 20 Meq Er Tab) 20 meq PO ONCE ONE Stop: 06/01/18 07:16 - Labs Labs: 06/01/18 06:10 06/01/18 06:10 PT 11.4 SECONDS (9.7-12.2) 05/30/18 16:32 INR 1.0 05/30/18 16:32 APTT 33 SECONDS (21-34) 05/30/18 16:32 - Constitutional Appears: Non-toxic, No Acute Distress - Head Exam Head Exam: NORMAL INSPECTION - Eye Exam Eye Exam: EOMI - ENT Exam ENT Exam: Mucous Membranes Dry - Respiratory Exam Respiratory Exam: NORMAL BREATHING PATTERN. absent: Clear to Ausculation Bilateral, Rales, Rhonchi, Wheezes - Cardiovascular Exam Cardiovascular Exam: REGULAR RHYTHM, +S1, +S2 - GI/Abdominal Exam GI & Abdominal Exam: Soft, Normal Bowel Sounds. absent: Distended, Firm, Guarding, Rigid, Tenderness, Rebound - Neurological Exam Neurological Exam: Alert, Awake, Oriented x3 Neuro motor strength exam: Left Upper Extremity: 5, Right Upper Extremity: 5, Left Lower Extremity: 5, Right Lower Extremity: 4 - Psychiatric Exam Psychiatric exam: Normal Affect, Normal Mood - Skin Skin Exam: Dry, Normal Color, Warm Additional comments: mild swelling over the right hand Assessment and Plan (1) Intracranial hemorrhage Status: Acute (2) HTN (hypertension) Status: Chronic (3) Lipid disorder Status: Chronic (4) Gastritis Status: Chronic (5) Cough Status: Acute (6) Prophylactic measure Status: Acute Attending/Attestation - Attestation I have personally seen and examined this patient.: Yes I have fully participated in the care of the patient.: Yes I have reviewed all pertinent clinical information, including history, physical exam and plan: Yes Notes (Text): (1) Intracranial hemorrhage Assessment & Plan: Imaging: Ct head (05/30/18): 2.1 X 1.x3 cm acute parenchymal hemorrhage at the left basal ganglia coronal radiata. CT head/neck 05/30/18: no evidence of arterial occlusion or critical focal stenosis; no evidence of aneurysm or vascular anomaly CT head (05/31/18): 2.0 X1.2cm left basal ganglia hemorrhage has mildly increased in size with mild associated edema Per neurology, there is an increase in size with mild associated edema Neurosurgery (Dr. Perdomo) on case-->Discussed with ICU, no surgery intervention because it is deep basal ganglia bleed Neurology (Dr. Poe) on case-->help appreciated * Continue to hold antiplatelets and AC. Patient is off Cardene drip since 1829 yesterday NS 100cc/hr Protonix 40mg IV qdaily Status: Acute (2) HTN (hypertension) Assessment & Plan: Patient is off Cardene drip since 1830 yesterday Echocardiogram (05/31/18): borderline concentric left ventricular hypertrophy. left ventricle systolic function is normal. ejection fraction is 65-70% NS 100cc/hr Status: Chronic (3) Lipid disorder Assessment & Plan: mild elevated triglycerides a1c: impaired glucose tolerance Status: Acute (4) Gastritis Assessment & Plan: protonix 40mg IV q daily Status: Chronic (5) Cough Assessment & Plan: Portable chest xray ordered Status: Acute (6) Obesity Assessment & Plan: Recommend diet and exercise modifications (7) Prophylactic measure Assessment & Plan: Chemical anticoagulation held secondary to intracranial hemorrhage AC held secondary to intracranial hemorrhage Status: Acute
[2018-06-01] MEDS ORDERED: Albuterol-Ipratrop 3 mg / 0.5 (3 ml) UD INH PRN (07:30)
[2018-06-01] MEDS ORDERED: Potassium Chloride 20 mEq ER Tab PO ONE ×2 (07:30→10:00)
--- NOTE | 2018-06-01 09:02 | RAD ---
Chest x-ray single frontal view HISTORY: Cough. Comparison: 05/30/2018 Findings: Moderate venous congestion. Right hilar prominence. Patchy increased markings in the right infrahilar region. Cardiomegaly. Tortuous ectatic aorta. Impression : Moderate venous congestion. Right hilar prominence. Patchy increased markings in the right infrahilar region. Cardiomegaly. Tortuous ectatic aorta.
--- NOTE | 2018-06-01 10:55 | CT ---
Date of service: 06/01/2018 PROCEDURE: CT HEAD WITHOUT CONTRAST. HISTORY: eval for interval change COMPARISON: Comparison is made to the previous study dated 05/31/2018 TECHNIQUE: Axial computed tomography images were obtained through the head/brain without intravenous contrast. Radiation dose: Total exam DLP = 1068.08 mGy-cm. This CT exam was performed using one or more of the following dose reduction techniques: Automated exposure control, adjustment of the mA and/or kV according to patient size, and/or use of iterative reconstruction technique. FINDINGS: HEMORRHAGE: Again noted is focal parenchymal hematoma at the left basal ganglia measures 1.8 centimeter in the largest AP diameter and 1.3 centimeter in the transverse diameter which has not significantly changed since the prior study. Small adjacent edema noted. BRAIN: No mass effect or edema. No atrophy or chronic microvascular ischemic changes. VENTRICLES: Unremarkable. No hydrocephalus. CALVARIUM: Unremarkable. PARANASAL SINUSES: Unremarkable as visualized. No significant inflammatory changes. MASTOID AIR CELLS: Unremarkable as visualized. No inflammatory changes. OTHER FINDINGS: None. IMPRESSION: Stable left basal ganglia parenchymal hematoma. No significant interval changes.
--- NOTE | 2018-06-01 11:19 | PCM.STROKE ---
Interval History Stroke Date: 05/30/18 - Treatment DVT Prophylaxis: Sequential compression device in place bilaterally - Education Written Stroke Education provided regarding: personal risk factors, stroke warning sign/symptoms, how to activate emergency medical services, need to follow up after discharge Hx Atrial Fibrillation: No Hx Atrial Flutter: No - Therapy Notes Physical therapy notes date reviewed: 06/01/18 I have reviewed care of the patient with: Dr. Poe NIHSS Stroke Scale - Date/Time Evaluation Performed Date Performed: 06/01/18 Time Performed: 11:37 When Was NIHSS Performed: Re-evaluation - How Severe is the Stroke Level of Consciousness: 0=Alert LOC to Questions: 0=Both comments correct LOC to commands: 0=Obeys both correctly Best Gaze: 0=Normal Visual: 0=No visual loss Facial: 0=Normal Motor Arm - Left: 0=No drift Motor Arm - Right: 1=Drift noted before 10 sec Motor Leg - Left: 0=No drift Motor Leg - Right: 1=Drift before 5 sec Limb Ataxia: 0=Absent Sensory: 1=Mild to moderate loss (RUE, RLE, and right side of face decreased sensation) Best Language: 0=No aphasia Dysarthia: 0=Normal articulation Extinction & Inattention (Neglect): 0=Normal, no object Score: 3 Exam - Vital Sign Vital Signs: Temp Pulse Resp BP Pulse Ox 98.1 F 65 10 L 123/64 100 06/01/18 08:00 06/01/18 10:40 06/01/18 10:40 06/01/18 10:32 06/01/18 10:40 Constitutional: No distress, Normal appearing Ophthalmoscopic: absent: papilledema ( ), hemorrhage Right Pupil: Reactive Right Pupil Size (in mm): 2 Left Pupil: Reactive Left Pupil Size (in mm): 2 Cardiovascular: Regular rate & rhythm Mental Status: Normal: Orientation, Memory, Attention, Language, Fund of Knowledge Cranial Nerve: Normal: Visual Mary, Extraocular movement intact, Facial Strength, Hearing, Palate/Tongue Movement, Shoulder Strength. Abnormal: Facial Sensation (decreased right side) Motor: Tone Neuro motor strength exam: Left Upper Extremity: 5, Right Upper Extremity: 3 (cyber ops planner 4/5), Left Lower Extremity: 5, Right Lower Extremity: 3 (pantar flexion 3/5) Sensation: absent: Intact to pin (sensation is decreased to RUE and RLE) DTR: Patellar Left: 1+, Patellar Right: 1+ Flexor Plantar Reflex: Normal Coordination: Finger/nose (dysmetria on right). absent: Heel/Smith (abnormal rig ht) Gait: Other (gait not assessed by me; PT notes reviewed) Vascular Risk: Hypertension, Lipids - Data reviewed Laboratory results: 06/01/18 06:10 06/01/18 06:10 Triglycerides 196 mg/dL (0-149) H 05/30/18 16:32 Cholesterol 157 mg/dL (0-199) 05/30/18 16:32 LDL Cholesterol Direct 107 mg/dL (0-129) 05/30/18 16:32 HDL Cholesterol 51 mg/dL (30-70) 05/30/18 16:32 Hemoglobin A1c 5.6 % (4.2-6.5) 05/30/18 16:32 Assessment and Plan (1) Hemorrhagic stroke Assessment & Plan: Imaging reviewed: -CT head (06/01/18): Stable left basal ganglia parenchymal hematoma. No significant interval changes. -CTA Head and Neck (05/30/18): No evidence of arterial occlusion or critical focal stenosis. No evidence of aneurysm or vascular anomaly. -CT Head (05/30/18): 2.1 x 1.3 centimeter acute parenchymal hemorrhage at the left basal ganglia coronal radiata. -Continue PT/OT/ST -Continue BP control -Neurosurgery on the case. -Continue to hold antiplatelets and AC. -Notify neuro team of any acute changes in pt's condition. Maegan Salazar, ZENY, RN X RAY Discussed with Dr. Poe Status: Acute
--- NOTE | 2018-06-01 11:30 | CP.CCUPN ---
<JossyKristofer - Last Filed: 06/01/18 15:10> CCU Subjective - Physician Review Subjective (Free Text): ICU Progress Note for Dr. Toño Eng Pt seen and examined at bedside this am. Denies any acute complaints, reports R sided arm and leg weakness is improved. C/o pinpoint rib pain that is worsened when she moves around, given Tylenol with relief of symptoms. Otherwise denies chest pain, sob, n/v/d/c, abd pain, urinary complaints, numbness/tingling in exts, or other symptoms. No acute events reported overnight by staff. CCU Objective - Vital Signs / Intake & Output Vital Signs (Last 4 hours): Vital Signs Temp Pulse Resp BP Pulse Ox 06/01/18 10:40 65 10 L 100 06/01/18 10:32 64 12 123/64 99 06/01/18 10:30 67 11 L 97 06/01/18 10:21 67 06/01/18 10:00 70 15 99 06/01/18 09:54 130/84 06/01/18 09:50 76 20 98 06/01/18 09:40 70 16 06/01/18 09:31 76 12 123/70 06/01/18 09:30 68 12 06/01/18 09:20 75 13 06/01/18 09:10 72 15 06/01/18 09:00 71 12 06/01/18 08:50 77 13 06/01/18 08:40 74 18 06/01/18 08:34 75 15 115/76 06/01/18 08:30 71 15 06/01/18 08:20 72 15 96 06/01/18 08:10 69 13 95 06/01/18 08:00 98.1 F 72 17 86 L 06/01/18 07:50 73 17 96 06/01/18 07:40 66 12 95 06/01/18 07:34 72 15 140/80 95 Intake and Output (Last 8hrs): Intake & Output 05/31/18 06/01/18 06/01/18 22:59 06:59 14:59 Intake Total 1375 800 525 Output Total 400 0 700 Balance 975 800 -175 Weight 159 lb 6.4 oz Intake: IV 255 Intake, IV Amount 850 800 100 Left Antecubital 700 800 100 Left Wrist 150 Oral 270 425 Output: Urine 400 700 Urine, Voided 400 700 Emesis 0 0 0 Other: # Voids Urine, Voided 2 1 # Bowel Movements 0 1 0 - Physical Exam Head: Positive for: Atraumatic, Normocephalic Pupils: Positive for: PERRL Extroacular Muscles: Positive for: EOMI Conjunctiva: Positive for: Normal Mouth: Positive for: Moist Mucous Membranes Neck: Positive for: Normal Range of Motion. Negative for: JVD, Lymphadenopathy Respiratory/Chest: Positive for: Clear to Auscultation, Good Air Exchange. Negative for: Respiratory Distress, Accessory Muscle Use Cardiovascular: Positive for: Normal S1, S2. Negative for: Murmurs, Rub, Gallop Abdomen: Positive for: Normal Bowel Sounds. Negative for: Tenderness, Distention, Mass/Organomegaly Upper Extremity: Positive for: NORMAL PULSES, Neurovascularly Intact, Capillary Refill < 2s, Other (muscle strength 3/5 on RUE). Negative for: Cyanosis, Edema Lower Extremity: Positive for: NORMAL PULSES, Neurovascularly Intact, Capillary Refill < 2 s, Other (Muscle strength 3/5 on RLE). Negative for: Edema Neurological: Positive for: GCS=15, Speech Normal Skin: Positive for: Warm, Dry, Normal Color Psychiatric: Positive for: Alert, Oriented x 3 - Medications Active Medications: Active Medications Generic Name Dose Route Start Last Admin Trade Name Freq PRN Reason Stop Dose Admin Acetaminophen 650 mg 05/31/18 16:53 06/01/18 08:10 Tylenol 325mg Tab PO 650 mg Q6 PRN Administration Pain, moderate (4-7) Albuterol/Ipratropium 3 ml 06/01/18 07:30 Duoneb 3 Mg/0.5 Mg (3 Ml) Ud INH RQ6 PRN Shortness of Breath Amlodipine Besylate 5 mg 06/01/18 10:00 06/01/18 09:53 Norvasc PO 5 mg DAILY DAVE Administration Benzonatate 100 mg 06/01/18 10:00 Tessalon Perles PO TID DAVE Famotidine 20 mg 06/01/18 10:00 06/01/18 09:54 Pepcid PO 20 mg DAILY DAVE Administration Influenza Virus Vaccine 60 mcg 06/02/18 10:00 Flucelvax Quad [id number] Syr IM 06/02/18 10:01 .ONCE ONE Pneumococcal Polyvalent Vaccine 0.5 ml 06/02/18 10:00 Pneumovax 23 Vaccine SC 06/02/18 10:01 .ONCE ONE - Patient Studies Lab Studies: Microbiology Studies 05/30/18 21:06 MRSA Culture (Admit) - Final Naris MRSA NOT DETECTED Lab Studies 06/01/18 06/01/18 06/01/18 Range/Units 07:28 06:10 06:10 WBC 4.6 L (4.8-10.8) K/uL RBC 4.97 (3.80-5.20) Mil/uL Hgb 14.3 (11.0-16.0) g/dL Hct 44.3 (34.0-47.0) % MCV 89.2 (81.0-99.0) fL MCH 28.9 (27.0-31.0) pg MCHC 32.4 L (33.0-37.0) g/dL RDW 13.6 (11.5-14.5) % Plt Count 214 (130-400) K/uL MPV 9.0 (7.2-11.7) fL Neut % (Auto) 59.8 (50.0-75.0) % Lymph % (Auto) 23.2 (20.0-40.0) % [place] % (Auto) 6.5 (0.0-10.0) % Eos % (Auto) 10.1 H (0.0-4.0) % Baso % (Auto) 0.4 (0.0-2.0) % Neut # (Auto) 2.8 (1.8-7.0) K/uL Lymph # (Auto) 1.1 (1.0-4.3) K/uL [place] # (Auto) 0.3 (0.0-0.8) K/uL Eos # (Auto) 0.5 (0.0-0.7) K/uL Baso # (Auto) 0.0 (0.0-0.2) K/uL Sodium 140 (132-148) mmol/L Potassium 3.5 L (3.6-5.2) mmol/L Chloride 107 (98-107) mmol/L Carbon Dioxide 27 (22-30) mmol/L Anion Gap 10 (10-20) BUN 11 (7-17) mg/dL Creatinine 0.5 L (0.7-1.2) mg/dL Est GFR ( Amer) > 60 Est GFR (Non-Af Amer) > 60 POC Glucose (mg/dL) 118 H (65-110) mg/dL Random Glucose 105 (65-105) mg/dL Calcium 8.5 L (8.6-10.4) mg/dl Phosphorus 3.9 (2.5-4.5) mg/dL Magnesium 1.8 (1.6-2.3) mg/dL Total Bilirubin 0.7 (0.2-1.3) mg/dL AST 33 (14-36) U/L ALT 36 (9-52) U/L Alkaline Phosphatase 97 (38-126) U/L Total Protein 6.2 L (6.3-8.3) g/dL Albumin 3.6 (3.5-5.0) g/dL Globulin 2.6 (2.2-3.9) gm/dL Albumin/Globulin Ratio 1.4 (1.0-2.1) 05/31/18 05/31/18 05/31/18 Range/Units 21:13 16:24 11:30 WBC (4.8-10.8) K/uL RBC (3.80-5.20) Mil/uL Hgb (11.0-16.0) g/dL Hct (34.0-47.0) % MCV (81.0-99.0) fL MCH (27.0-31.0) pg MCHC (33.0-37.0) g/dL RDW (11.5-14.5) % Plt Count (130-400) K/uL MPV (7.2-11.7) fL Neut % (Auto) (50.0-75.0) % Lymph % (Auto) (20.0-40.0) % [place] % (Auto) (0.0-10.0) % Eos % (Auto) (0.0-4.0) % Baso % (Auto) (0.0-2.0) % Neut # (Auto) (1.8-7.0) K/uL Lymph # (Auto) (1.0-4.3) K/uL [place] # (Auto) (0.0-0.8) K/uL Eos # (Auto) (0.0-0.7) K/uL Baso # (Auto) (0.0-0.2) K/uL Sodium (132-148) mmol/L Potassium (3.6-5.2) mmol/L Chloride (98-107) mmol/L Carbon Dioxide (22-30) mmol/L Anion Gap (10-20) BUN (7-17) mg/dL Creatinine (0.7-1.2) mg/dL Est GFR ( Amer) Est GFR (Non-Af Amer) POC Glucose (mg/dL) 125 H 127 H 114 H (65-110) mg/dL Random Glucose (65-105) mg/dL Calcium (8.6-10.4) mg/dl Phosphorus (2.5-4.5) mg/dL Magnesium (1.6-2.3) mg/dL Total Bilirubin (0.2-1.3) mg/dL AST (14-36) U/L ALT (9-52) U/L Alkaline Phosphatase (38-126) U/L Total Protein (6.3-8.3) g/dL Albumin (3.5-5.0) g/dL Globulin (2.2-3.9) gm/dL Albumin/Globulin Ratio (1.0-2.1) Laboratory Results - last 24 hr 05/31/18 05/31/18 05/31/18 11:30 16:24 21:13 WBC RBC Hgb Hct MCV MCH MCHC RDW Plt Count MPV Neut % (Auto) Lymph % (Auto) [place] % (Auto) Eos % (Auto) Baso % (Auto) Neut # (Auto) Lymph # (Auto) [place] # (Auto) Eos # (Auto) Baso # (Auto) Sodium Potassium Chloride Carbon Dioxide Anion Gap BUN Creatinine Est GFR ( Amer) Est GFR (Non-Af Amer) POC Glucose (mg/dL) 114 H 127 H 125 H Random Glucose Calcium Phosphorus Magnesium Total Bilirubin AST ALT Alkaline Phosphatase Total Protein Albumin Globulin Albumin/Globulin Ratio 06/01/18 06/01/18 06/01/18 06:10 06:10 07:28 WBC 4.6 L RBC 4.97 Hgb 14.3 Hct 44.3 MCV 89.2 MCH 28.9 MCHC 32.4 L RDW 13.6 Plt Count 214 MPV 9.0 Neut % (Auto) 59.8 Lymph % (Auto) 23.2 [place] % (Auto) 6.5 Eos % (Auto) 10.1 H Baso % (Auto) 0.4 Neut # (Auto) 2.8 Lymph # (Auto) 1.1 [place] # (Auto) 0.3 Eos # (Auto) 0.5 Baso # (Auto) 0.0 Sodium 140 Potassium 3.5 L Chloride 107 Carbon Dioxide 27 Anion Gap 10 BUN 11 Creatinine 0.5 L Est GFR ( Amer) > 60 Est GFR (Non-Af Amer) > 60 POC Glucose (mg/dL) 118 H Random Glucose 105 Calcium 8.5 L Phosphorus 3.9 Magnesium 1.8 Total Bilirubin 0.7 AST 33 ALT 36 Alkaline Phosphatase 97 Total Protein 6.2 L Albumin 3.6 Globulin 2.6 Albumin/Globulin Ratio 1.4 Radiology Impressions: Radiology Impressions Head CT 05/31/18 09:00 IMPRESSION: 2.0 x 1.2 cm left basal ganglia hemorrhage has mildly increased in size with mild associated edema. Head CT 06/01/18 07:37 IMPRESSION: Stable left basal ganglia parenchymal hematoma. No significant interval changes. Fingerstick Blood Sugar Results: 125 Review of Systems - Constitutional Constitutional: Weakness. absent: Fever, Chills, Sweats - EENT Eyes: absent: Change in Vision - Cardiovascular Cardiovascular: absent: Chest Pain, Dyspnea on Exertion, Pain Radiating to Arm/Neck/Jaw, Leg Edema, Palpitations, Pedal Edema, Syncope - Respiratory Respiratory: absent: Cough, Dyspnea, Dyspnea on Exertion, Wheezing, Chest Congestion - Gastrointestinal Gastrointestinal: absent: Abdominal Pain, Constipation, Diarrhea, Nausea, Vomiting Critical Care Progress Note - Nutrition Nutrition: Nutrition Category Date Time Status Heart Healthy Diet [DIET] Diets 05/31/18 Lunch Active Assessment/Plan - Assessment and Plan (Free Text) Assessment: 57 y o female with PMhx HTN, gastritis who presented to the ED with R-sided arm and leg weakness. Admitted to ICU for Hemorrhagic CVA with R-sided weakness. Stable for downgrade from ICU to telemetry floor at this time. Plan: Neuro: -AAOx3 on exam today -R-sided weakness demonstrated on exam -CT head on admission demonstrated 2.1 x 1.3 cm acute parenchymal hemorrhage at L basal ganglia -Repeat CT 05/31: 2.0 x 1.2 cm L basal ganglia hemorrhage has mildly increased in size with mild assoc. edema -Repeat CT today: stable L basal ganglia parenchymal hematoma. No significant interval changes. -Head/neck CTA: no arterial occlusion or critical focal stenosis -Neuro checks -Neurology consulted, Deepika Garcia, recs appreciated -Neurosurgery consulted, Dr. Whitmore, recs appreciated, recommend no acute neurosurgical intervention at this time due to deep basal ganglia bleed -RPR ordered Cardio: -Vitals stable -TGs 196, LDL 107, HDL 51 -HgA1c 5.6 -Trop neg x1 on admission -Nicardipine drip d/c'd -Hx HTN -C/w IVF GI: -Hx gastritis -C/w Protonix daily -HHD Heme: -H/H 14.3/44.3, stable, cont to monitor -No leukocytosis Renal: -Bun/Cr: 11/0.5 -Hypokalemia K 3.5, s/p repletion, cont to monitor -Cont to trend I's/O's, no acute issues at this time PPX: -DVT pharm ppx contraindicated for acute bleed, currently on SCDs -GI ppx: Protonix -HHD -PT/OT evals ordered Pt seen, examined with, and plan discussed with Dr. Toño Eng, attending physician. Kristofer Fenton DO PGY-1, [employer] Pager #[phone] <Shaquille Eng - Last Filed: 06/03/18 16:24> CCU Objective - Vital Signs / Intake & Output Intake and Output (Last 8hrs): Intake & Output 06/03/18 06/03/18 06/03/18 06:59 14:59 22:59 Intake Total 500 Balance 500 Intake: Oral 500 Other: # Voids Urine, Voided 4 - Medications Active Medications: Active Medications Generic Name Dose Route Start Last Admin Trade Name Freq PRN Reason Stop Dose Admin Acetaminophen 650 mg 05/31/18 16:53 06/01/18 08:10 Tylenol 325mg Tab PO 650 mg Q6 PRN Administration Pain, moderate (4-7) Al Hydrox/Mg Hydrox/Simethicone 30 ml 06/03/18 11:01 06/03/18 14:16 Maalox 30 Ml PO 30 ml Q6H PRN Administration Indigestion / Heartburn Albuterol/Ipratropium 3 ml 06/01/18 07:30 Duoneb 3 Mg/0.5 Mg (3 Ml) Ud INH RQ6 PRN Shortness of Breath Amlodipine Besylate 5 mg 06/01/18 10:00 06/03/18 09:23 Norvasc PO 5 mg DAILY DAVE Administration Ascorbic Acid 500 mg 06/02/18 12:00 06/03/18 09:23 Vitamin C 500 Mg Tab PO 500 mg DAILY DAVE Administration Benzonatate 100 mg 06/01/18 10:00 06/03/18 14:16 Tessalon Perles PO 100 mg TID DAVE Administration Famotidine 20 mg 06/01/18 10:00 06/03/18 09:23 Pepcid PO 20 mg DAILY DAVE Administration Guaifenesin/Codeine Phosphate 10 ml 06/02/18 11:02 Guaifenesin/Codeine PO Q6H PRN Cough and congestion - Patient Studies Lab Studies: Microbiology Studies 06/01/18 13:18 MRSA Culture - Final Naris MRSA NOT DETECTED Lab Studies 06/03/18 06/03/18 06/02/18 Range/Units 09:08 09:08 20:49 WBC 5.6 (4.8-10.8) K/uL RBC 4.97 (3.80-5.20) Mil/uL Hgb 14.9 (11.0-16.0) g/dL Hct 43.7 (34.0-47.0) % MCV 88.0 (81.0-99.0) fL MCH 30.1 (27.0-31.0) pg MCHC 34.1 (33.0-37.0) g/dL RDW 13.7 (11.5-14.5) % Plt Count 229 (130-400) K/uL MPV 8.7 (7.2-11.7) fL Neut % (Auto) 64.3 (50.0-75.0) % Lymph % (Auto) 22.7 (20.0-40.0) % [place] % (Auto) 3.4 (0.0-10.0) % Eos % (Auto) 8.9 H (0.0-4.0) % Baso % (Auto) 0.7 (0.0-2.0) % Neut # (Auto) 3.6 (1.8-7.0) K/uL Lymph # (Auto) 1.3 (1.0-4.3) K/uL [place] # (Auto) 0.2 (0.0-0.8) K/uL Eos # (Auto) 0.5 (0.0-0.7) K/uL Baso # (Auto) 0.0 (0.0-0.2) K/uL Sodium 140 (132-148) mmol/L Potassium 4.2 (3.6-5.2) mmol/L Chloride 103 (98-107) mmol/L Carbon Dioxide 28 (22-30) mmol/L Anion Gap 13 (10-20) BUN 20 H (7-17) mg/dL Creatinine 0.5 L (0.7-1.2) mg/dL Est GFR ( Amer) > 60 Est GFR (Non-Af Amer) > 60 POC Glucose (mg/dL) 120 H (65-110) mg/dL Random Glucose 188 H D (65-105) mg/dL Calcium 9.1 (8.6-10.4) mg/dl Total Bilirubin 0.6 (0.2-1.3) mg/dL AST 32 (14-36) U/L ALT 35 (9-52) U/L Alkaline Phosphatase 101 (38-126) U/L Total Protein 7.1 (6.3-8.3) g/dL Albumin 4.2 (3.5-5.0) g/dL Globulin 2.9 (2.2-3.9) gm/dL Albumin/Globulin Ratio 1.4 (1.0-2.1) RPR (NONREACTIVE) 06/02/18 06/02/18 Range/Units 16:45 08:12 WBC (4.8-10.8) K/uL RBC (3.80-5.20) Mil/uL Hgb (11.0-16.0) g/dL Hct (34.0-47.0) % MCV (81.0-99.0) fL MCH (27.0-31.0) pg MCHC (33.0-37.0) g/dL RDW (11.5-14.5) % Plt Count (130-400) K/uL MPV (7.2-11.7) fL Neut % (Auto) (50.0-75.0) % Lymph % (Auto) (20.0-40.0) % [place] % (Auto) (0.0-10.0) % Eos % (Auto) (0.0-4.0) % Baso % (Auto) (0.0-2.0) % Neut # (Auto) (1.8-7.0) K/uL Lymph # (Auto) (1.0-4.3) K/uL [place] # (Auto) (0.0-0.8) K/uL Eos # (Auto) (0.0-0.7) K/uL Baso # (Auto) (0.0-0.2) K/uL Sodium (132-148) mmol/L Potassium (3.6-5.2) mmol/L Chloride (98-107) mmol/L Carbon Dioxide (22-30) mmol/L Anion Gap (10-20) BUN (7-17) mg/dL Creatinine (0.7-1.2) mg/dL Est GFR ( Amer) Est GFR (Non-Af Amer) POC Glucose (mg/dL) 123 H (65-110) mg/dL Random Glucose (65-105) mg/dL Calcium (8.6-10.4) mg/dl Total Bilirubin (0.2-1.3) mg/dL AST (14-36) U/L ALT (9-52) U/L Alkaline Phosphatase (38-126) U/L Total Protein (6.3-8.3) g/dL Albumin (3.5-5.0) g/dL Globulin (2.2-3.9) gm/dL Albumin/Globulin Ratio (1.0-2.1) RPR Nonreactive (NONREACTIVE) Laboratory Results - last 24 hr 06/02/18 06/02/18 06/02/18 08:12 16:45 20:49 WBC RBC Hgb Hct MCV MCH MCHC RDW Plt Count MPV Neut % (Auto) Lymph % (Auto) [place] % (Auto) Eos % (Auto) Baso % (Auto) Neut # (Auto) Lymph # (Auto) [place] # (Auto) Eos # (Auto) Baso # (Auto) Sodium Potassium Chloride Carbon Dioxide Anion Gap BUN Creatinine Est GFR ( Amer) Est GFR (Non-Af Amer) POC Glucose (mg/dL) 123 H 120 H Random Glucose Calcium Total Bilirubin AST ALT Alkaline Phosphatase Total Protein Albumin Globulin Albumin/Globulin Ratio RPR Nonreactive 06/03/18 06/03/18 09:08 09:08 WBC 5.6 RBC 4.97 Hgb 14.9 Hct 43.7 MCV 88.0 MCH 30.1 MCHC 34.1 RDW 13.7 Plt Count 229 MPV 8.7 Neut % (Auto) 64.3 Lymph % (Auto) 22.7 [place] % (Auto) 3.4 Eos % (Auto) 8.9 H Baso % (Auto) 0.7 Neut # (Auto) 3.6 Lymph # (Auto) 1.3 [place] # (Auto) 0.2 Eos # (Auto) 0.5 Baso # (Auto) 0.0 Sodium 140 Potassium 4.2 Chloride 103 Carbon Dioxide 28 Anion Gap 13 BUN 20 H Creatinine 0.5 L Est GFR ( Amer) > 60 Est GFR (Non-Af Amer) > 60 POC Glucose (mg/dL) Random Glucose 188 H D Calcium 9.1 Total Bilirubin 0.6 AST 32 ALT 35 Alkaline Phosphatase 101 Total Protein 7.1 Albumin 4.2 Globulin 2.9 Albumin/Globulin Ratio 1.4 RPR Critical Care Progress Note - Nutrition Nutrition: Nutrition Category Date Time Status Heart Healthy Diet [DIET] Diets 05/31/18 Lunch Active Assessment/Plan - Assessment and Plan (Free Text) Plan: Patient seen and examined at bedside. patient remains hemodynamically stable -no VALDOVINOS -ICH remains stable -avoid antiplatelets and anticoagulants. -Patient remains hemodynamically stable -above resident documents my clinical management - Date & Time Date: 06/01/18 Time: 18:00
[2018-06-02 08:20] LABS: BASO % 0.5 % (0.0-2.0); EOS # 0.6 K/uL (0.0-0.7); EOS % 10.8 % (0.0-4.0); HEMOGLOBIN 15.1 g/dL (11.0-16.0); LYMPH # 1.6 K/uL (1.0-4.3); LYMPH % 28.6 % (20.0-40.0); MEAN CELL VOLUME 88.2 fL (81.0-99.0); MEAN CORPUSCULAR HEMOGLOBIN 29.3 pg (27.0-31.0); MEAN CORPUSCULAR HGB CONC 33.2 g/dL (33.0-37.0); MEAN PLATELET VOLUME 8.7 fL (7.2-11.7); MONO # 0.4 K/uL (0.0-0.8); MONO % 6.2 % (0.0-10.0); NEUT # 3.1 K/uL (1.8-7.0); NEUT % 53.9 % (50.0-75.0); NRBC % 0.2 % (0.0-2.0); RBC 5.14 Mil/uL (3.80-5.20); RED CELL DISTRIBUTION WIDTH 13.4 % (11.5-14.5); WHITE BLOOD COUNT 5.7 K/uL (4.8-10.8)
[2018-06-02 08:35] LABS: ALB/GLOB RATIO 1.4 (1.0-2.1); ALBUMIN 4.2 g/dL (3.5-5.0); ALT/SGPT 27 U/L (9-52); AST/SGOT 29 U/L (14-36); BLOOD UREA NITROGEN 14 mg/dL (7-17); CALCIUM 9.2 mg/dl (8.6-10.4); GFR NON-AFRICAN AMERICAN > 60
--- NOTE | 2018-06-02 09:05 | CT ---
Date of service: 06/02/2018 PROCEDURE: CT HEAD WITHOUT CONTRAST. HISTORY: Hemorrhage COMPARISON: 06/01/2018 TECHNIQUE: Axial computed tomography images were obtained through the head/brain without intravenous contrast. Radiation dose: Total exam DLP = 928.01 mGy-cm. This CT exam was performed using one or more of the following dose reduction techniques: Automated exposure control, adjustment of the mA and/or kV according to patient size, and/or use of iterative reconstruction technique. FINDINGS: HEMORRHAGE: Again noted is a persistent focal parenchymal hematoma at the left basal ganglia with some mild surrounding edema measuring 1.9 x 1.2 centimeters previously measuring 1.8 x 1.3 centimeters, not significantly changed since the prior study. BRAIN: No atrophy or chronic microvascular ischemic changes. VENTRICLES: Unremarkable. No hydrocephalus. CALVARIUM: Unremarkable. PARANASAL SINUSES: Unremarkable as visualized. No significant inflammatory changes. MASTOID AIR CELLS: Unremarkable as visualized. No inflammatory changes. OTHER FINDINGS: None. IMPRESSION: Stable left basal ganglia parenchymal hemorrhage/hematoma with mild surrounding edema. No significant interval change.
[2018-06-02] MEDS ORDERED: Pneumococcal 23-Valent Vaccine SC ONE (10:00)
[2018-06-02] MEDS ORDERED: Influenza Vaccine 60 mcg/0.5 mL SYR (4YR UP) IM ONE (10:00)
[2018-06-02] MEDS ORDERED: Benzocaine/Menthol (Cepacol) Lozenge MT PRN (11:01)
[2018-06-02] MEDS ORDERED: Albuterol-Ipratrop 3 mg / 0.5 (3 ml) UD INH STA (11:02)
[2018-06-02] MEDS ORDERED: guaiFENesin-Codeine 100-10mg/5ml Syrup (10ml) UD PO PRN (11:02)
--- NOTE | 2018-06-02 11:05 | CP.PCM.PN ---
Subjective - Date & Time of Evaluation Date of Evaluation: 06/02/18 Time of Evaluation: 11:00 - Subjective Subjective: Medical Attending Note Patient seen and examined at bedside. Patient reports dry cough, denies headache, denies nausea, denies vomitting, denies abdominal pain, denies constipation, last bm yesterday, denies dysuria. I have asked nursing to contact physical therapy to see if gait has improve for possible discharge later today. Objective - Vital Signs/Intake and Output Vital Signs (last 24 hours): Temp Pulse Resp BP Pulse Ox 98.1 F 71 20 133/85 95 06/02/18 07:35 06/02/18 07:39 06/02/18 07:35 06/02/18 07:35 06/02/18 07:35 Intake and Output: 06/02/18 06/02/18 06:59 18:59 Intake Total 350 Balance 350 - Medications Medications: Current Medications Acetaminophen (Tylenol 325mg Tab) 650 mg PO Q6 PRN PRN Reason: Pain, moderate (4-7) Last Admin: 06/01/18 08:10 Dose: 650 mg Albuterol/Ipratropium (Duoneb 3 Mg/0.5 Mg (3 Ml) Ud) 3 ml INH RQ6 PRN PRN Reason: Shortness of Breath Albuterol/Ipratropium (Duoneb 3 Mg/0.5 Mg (3 Ml) Ud) 3 ml INH RSTAT STA Stop: 06/02/18 11:03 Amlodipine Besylate (Norvasc) 5 mg PO DAILY [facility] Last Admin: 06/02/18 09:48 Dose: 5 mg Benzocaine/Menthol (Cepacol Sore Throat) 1 mohamud MT TID PRN PRN Reason: Sore Throat Benzonatate (Tessalon Perles) 100 mg PO TID [facility] Last Admin: 06/02/18 09:47 Dose: 100 mg Famotidine (Pepcid) 20 mg PO DAILY [facility] Last Admin: 06/02/18 09:48 Dose: 20 mg Guaifenesin/Codeine Phosphate (Guaifenesin/Codeine) 10 ml PO Q6H PRN PRN Reason: Cough and congestion Pneumococcal Polyvalent Vaccine (Pneumovax 23 Vaccine) 0.5 ml IM .ONCE ONE Stop: 06/03/18 10:01 - Labs Labs: 06/02/18 08:12 06/02/18 08:12 PT 11.4 SECONDS (9.7-12.2) 05/30/18 16:32 INR 1.0 05/30/18 16:32 APTT 33 SECONDS (21-34) 05/30/18 16:32 - Constitutional Appears: Non-toxic, No Acute Distress - Head Exam Head Exam: NORMAL INSPECTION - Eye Exam Eye Exam: EOMI - ENT Exam ENT Exam: Mucous Membranes Moist - Respiratory Exam Additional comments: expiratory wheezing - Cardiovascular Exam Cardiovascular Exam: REGULAR RHYTHM, +S1, +S2 - Extremities Exam Extremities Exam: absent: Pedal Edema, Tenderness - Neurological Exam Neurological Exam: Alert, Awake, Oriented x3 - Psychiatric Exam Psychiatric exam: Normal Affect, Normal Mood - Skin Skin Exam: Dry, Intact, Normal Color, Warm Assessment and Plan (1) Bronchitis Status: Acute (2) Intracranial hemorrhage Status: Acute (3) HTN (hypertension) Status: Chronic (4) Lipid disorder Status: Chronic (5) Gastritis Status: Chronic (6) Cough Status: Acute (7) Prophylactic measure Status: Acute Attending/Attestation - Attestation I have personally seen and examined this patient.: Yes I have fully participated in the care of the patient.: Yes I have reviewed all pertinent clinical information, including history, physical exam and plan: Yes Notes (Text): 1) Intracranial hemorrhage Assessment & Plan: Imaging: Ct head (05/30/18): 2.1 X 1.x3 cm acute parenchymal hemorrhage at the left basal ganglia coronal radiata. CT head/neck 05/30/18: no evidence of arterial occlusion or critical focal stenosis; no evidence of aneurysm or vascular anomaly CT head (05/31/18): 2.0 X1.2cm left basal ganglia hemorrhage has mildly increased in size with mild associated edema Per neurology, there is an increase in size with mild associated edema CT head (06/02/18): stable left basal ganglia parenchymal hemorrhage/hematoma with mild surrounding edema. No significant interval change. Neurosurgery (Dr. Perdomo) on case-->Discussed with ICU, no surgery interven tion because it is deep basal ganglia bleed Neurology (Dr. Poe) on case-->help appreciated * Continue to hold antiplatelets and AC. Patient is off Cardene drip since 182905/31/18 Status: Acute (2) HTN (hypertension) Assessment & Plan: Patient is off Cardene drip since 183 yesterday Echocardiogram (05/31/18): borderline concentric left ventricular hypertrophy. left ventricle systolic function is normal. ejection fraction is 65-70% Norvasc 5mg PO daily Status: Chronic (3) Lipid disorder Assessment & Plan: mild elevated triglycerides a1c: impaired glucose tolerance Status: Acute (4) Gastritis Assessment & Plan: protonix 40mg IV q daily Status: Chronic (5) Cough Assessment & Plan: Portable chest xray: moderate venous congestion, right hilar prominence, patchy increasing in right infrahilat Duonebs PRN shortness of breathe Robotussin w codeine PRN cough Lasix 20mg IVX1 Status: Acute (6) Obesity Assessment & Plan: Recommend diet and exercise modifications (7) Prophylactic measure Assessment & Plan: Chemical anticoagulation held secondary to intracranial hemorrhage AC held secondary to intracranial hemorrhage PT/OT eval pepcid 20mg PO bid Status: Acute
[2018-06-03 09:16] LABS: BASO % 0.7 % (0.0-2.0); EOS # 0.5 K/uL (0.0-0.7); EOS % 8.9 % (0.0-4.0); HEMOGLOBIN 14.9 g/dL (11.0-16.0); LYMPH # 1.3 K/uL (1.0-4.3); LYMPH % 22.7 % (20.0-40.0); MEAN CORPUSCULAR HEMOGLOBIN 30.1 pg (27.0-31.0); MEAN CORPUSCULAR HGB CONC 34.1 g/dL (33.0-37.0); MEAN PLATELET VOLUME 8.7 fL (7.2-11.7); MONO # 0.2 K/uL (0.0-0.8); MONO % 3.4 % (0.0-10.0); NEUT # 3.6 K/uL (1.8-7.0); NEUT % 64.3 % (50.0-75.0); NRBC % 0.1 % (0.0-2.0); RBC 4.97 Mil/uL (3.80-5.20); RED CELL DISTRIBUTION WIDTH 13.7 % (11.5-14.5); WHITE BLOOD COUNT 5.6 K/uL (4.8-10.8)
[2018-06-03 09:37] LABS: ALB/GLOB RATIO 1.4 (1.0-2.1); ALBUMIN 4.2 g/dL (3.5-5.0); ALT/SGPT 35 U/L (9-52); AST/SGOT 32 U/L (14-36); BLOOD UREA NITROGEN 20 mg/dL (7-17); CALCIUM 9.1 mg/dl (8.6-10.4); GFR NON-AFRICAN AMERICAN > 60
[2018-06-03] MEDS ORDERED: Pneumococcal 23-Valent Vaccine IM ONE (10:00)
--- NOTE | 2018-06-03 11:00 | CP.PCM.PN ---
Subjective - Date & Time of Evaluation Date of Evaluation: 06/03/18 Time of Evaluation: 10:55 - Subjective Subjective: Medical Attending Note: Patient seen and examined. patient sitting upright in chair. patient reports her gerd symptoms acting up. denies headache, denies chest pain, denies cough, denies abdominal pain, denies nausea, denies vomiting, reports having bowel movements. I spoke with physical therapy who will work with her today. Objective - Vital Signs/Intake and Output Vital Signs (last 24 hours): Temp Pulse Resp BP Pulse Ox 97.9 F 66 20 144/80 99 06/03/18 07:50 06/03/18 07:53 06/03/18 07:50 06/03/18 07:50 06/03/18 07:50 - Medications Medications: Current Medications Acetaminophen (Tylenol 325mg Tab) 650 mg PO Q6 PRN PRN Reason: Pain, moderate (4-7) Last Admin: 06/01/18 08:10 Dose: 650 mg Albuterol/Ipratropium (Duoneb 3 Mg/0.5 Mg (3 Ml) Ud) 3 ml INH RQ6 PRN PRN Reason: Shortness of Breath Amlodipine Besylate (Norvasc) 5 mg PO DAILY [facility] Last Admin: 06/03/18 09:23 Dose: 5 mg Ascorbic Acid (Vitamin C 500 Mg Tab) 500 mg PO DAILY [facility] Last Admin: 06/03/18 09:23 Dose: 500 mg Benzonatate (Tessalon Perles) 100 mg PO TID [facility] Last Admin: 06/03/18 09:24 Dose: 100 mg Famotidine (Pepcid) 20 mg PO DAILY [facility] Last Admin: 06/03/18 09:23 Dose: 20 mg Guaifenesin/Codeine Phosphate (Guaifenesin/Codeine) 10 ml PO Q6H PRN PRN Reason: Cough and congestion - Labs Labs: 06/03/18 09:08 06/03/18 09:08 PT 11.4 SECONDS (9.7-12.2) 05/30/18 16:32 INR 1.0 05/30/18 16:32 APTT 33 SECONDS (21-34) 05/30/18 16:32 - Constitutional Appears: Non-toxic, No Acute Distress - Head Exam Head Exam: NORMAL INSPECTION - Eye Exam Eye Exam: EOMI - ENT Exam ENT Exam: Mucous Membranes Moist - Respiratory Exam Respiratory Exam: Clear to Ausculation Bilateral. absent: Rales, Rhonchi - Cardiovascular Exam Cardiovascular Exam: REGULAR RHYTHM, +S1, +S2 - GI/Abdominal Exam GI & Abdominal Exam: Soft, Normal Bowel Sounds. absent: Distended, Firm, Guarding, Rigid, Tenderness, Rebound - Extremities Exam Extremities Exam: absent: Pedal Edema, Tenderness - Neurological Exam Neurological Exam: Alert, Awake, Oriented x3 - Psychiatric Exam Psychiatric exam: Normal Affect, Normal Mood - Skin Skin Exam: Dry, Intact, Normal Color, Warm Assessment and Plan (1) Bronchitis Status: Acute (2) Intracranial hemorrhage Status: Acute (3) HTN (hypertension) Status: Chronic (4) Lipid disorder Status: Chronic (5) Gastritis Status: Chronic (6) Cough Status: Acute (7) Prophylactic measure Status: Acute Attending/Attestation - Attestation I have personally seen and examined this patient.: Yes I have fully participated in the care of the patient.: Yes I have reviewed all pertinent clinical information, including history, physical exam and plan: Yes Notes (Text): 1) Intracranial hemorrhage Assessment & Plan: Imaging: Ct head (05/30/18): 2.1 X 1.x3 cm acute parenchymal hemorrhage at the left basal ganglia coronal radiata. CT head/neck 05/30/18: no evidence of arterial occlusion or critical focal stenosis; no evidence of aneurysm or vascular anomaly CT head (05/31/18): 2.0 X1.2cm left basal ganglia hemorrhage has mildly increased in size with mild associated edema Per neurology, there is an increase in size with mild associated edema CT head (06/02/18): stable left basal ganglia parenchymal hemorrhage/hematoma with mild surrounding edema. No significant interval change. Neurosurgery (Dr. Perdomo) on case-->Discussed with ICU, no surgery intervention because it is deep basal ganglia bleed Neurology (Dr. Poe) on case-->help appreciated * Continue to hold antiplatelets and AC. Patient is off Cardene drip since 182905/31/18 Discussed with neuro, stable from standpoint; awaiting physical therapy clearance Status: Acute (2) HTN (hypertension) Assessment & Plan: Patient is off Cardene drip since 1829 yesterday Echocardiogram (05/31/18): borderline concentric left ventricular hypertrophy. left ventricle systolic function is normal. ejection fraction is 65-70% Norvasc 5mg PO daily Status: Chronic (3) Lipid disorder Assessment & Plan: mild elevated triglycerides a1c: impaired glucose tolerance Status: Acute (4) Gastritis Assessment & Plan: protonix 40mg IV q daily maalox PRN Status: Chronic (5) Cough Assessment & Plan: Portable chest xray: moderate venous congestion, right hilar prominence, patchy increasing in right infrahila5 Duonebs PRN shortness of breathe Robotussin w codeine PRN cough Status: Acute (6) Obesity Assessment & Plan: Recommend diet and exercise modifications (7) Prophylactic measure Assessment & Plan: Chemical anticoagulation held secondary to intracranial hemorrhage AC held secondary to intracranial hemorrhage PT/OT eval pepcid 20mg PO bid Status: Acute Disposition: d/c telemetry, awaiting physical therapy clearance. discussed with neurology regarding recent head ct from yesterday.
[2018-06-03] MEDS ORDERED: Aluminum Hydroxide/Magnesium Hydroxide Susp (30 mL) PO PRN (11:01)
[2018-06-04 07:49] LABS: BASO % 0.5 % (0.0-2.0); EOS # 0.5 K/uL (0.0-0.7); EOS % 10.2 % (0.0-4.0); HEMOGLOBIN 14.7 g/dL (11.0-16.0); LYMPH # 1.3 K/uL (1.0-4.3); LYMPH % 23.5 % (20.0-40.0); MEAN CELL VOLUME 88.1 fL (81.0-99.0); MEAN PLATELET VOLUME 8.6 fL (7.2-11.7); MONO # 0.3 K/uL (0.0-0.8); MONO % 5.9 % (0.0-10.0); NEUT # 3.2 K/uL (1.8-7.0); NEUT % 59.9 % (50.0-75.0); RBC 4.9 Mil/uL (3.80-5.20); WHITE BLOOD COUNT 5.3 K/uL (4.8-10.8)
[2018-06-04 08:20] LABS: ALB/GLOB RATIO 1.4 (1.0-2.1); ALT/SGPT 28 U/L (9-52); AST/SGOT 45 U/L (14-36); BLOOD UREA NITROGEN 19 mg/dL (7-17); GFR NON-AFRICAN AMERICAN > 60
--- NOTE | 2018-06-04 12:30 | CT ---
Date of service: 06/04/2018 PROCEDURE: CT HEAD WITHOUT CONTRAST. HISTORY: Headache today, monitor for new expansion COMPARISON: Comparison made with prior CT scan of the brain dated 06/02/2018. TECHNIQUE: Axial computed tomography images were obtained through the head/brain without intravenous contrast. Radiation dose: Total exam DLP = 949.32 mGy-cm. This CT exam was performed using one or more of the following dose reduction techniques: Automated exposure control, adjustment of the mA and/or kV according to patient size, and/or use of iterative reconstruction technique. FINDINGS: HEMORRHAGE: Redemonstrated is a elliptical shaped hematoma within the left lamina basal ganglia measuring approximately 3.1 x 19 mm x 11 mm slightly increase in size when compared with prior study. Findings likely represent a hypertensive origin hemorrhage.. Clinical correlation recommended. There is a surrounding small rim of low-attenuation edema and or necrotic brain tissue No new hemorrhages are identified. BRAIN: No mass effect or edema. No atrophy or chronic microvascular ischemic changes. VENTRICLES: No obstructive hydrocephalus. CALVARIUM: Unremarkable. PARANASAL SINUSES: Unremarkable as visualized. No significant inflammatory changes. MASTOID AIR CELLS: Unremarkable as visualized. No inflammatory changes. OTHER FINDINGS: None. IMPRESSION: Redemonstrated is a left basal ganglia hemorrhage slightly increased in size from prior exam. Hemorrhages likely hypertensive in origin however clinical correlation recommended. There is a small of rim of low-attenuation edema and or necrotic brain tissue. No new hemorrhages or hydrocephalus.
--- NOTE | 2018-06-04 15:13 | CP.PCM.PN ---
Subjective - Date & Time of Evaluation Date of Evaluation: 06/04/18 Time of Evaluation: 13:00 - Subjective Subjective: Progress note for Dr. Mckeon. Patient seen and examined at bedside. States she had an occipital headache this morning, which has now resolved. Denies dizziness, slurred speech, new weakness, numbness or confusion. Objective - Vital Signs/Intake and Output Vital Signs (last 24 hours): Temp Pulse Resp BP Pulse Ox 97.9 F 69 18 144/82 97 06/04/18 07:30 06/04/18 07:30 06/04/18 07:30 06/04/18 07:30 06/04/18 07:30 Intake and Output: 06/04/18 06/04/18 06:59 18:59 Intake Total 720 Balance 720 - Medications Medications: Current Medications Acetaminophen (Tylenol 325mg Tab) 650 mg PO Q6 PRN PRN Reason: Pain, moderate (4-7) Last Admin: 06/04/18 12:15 Dose: 650 mg Al Hydrox/Mg Hydrox/Simethicone (Maalox 30 Ml) 30 ml PO Q6H PRN PRN Reason: Indigestion / Heartburn Last Admin: 06/03/18 14:16 Dose: 30 ml Albuterol/Ipratropium (Duoneb 3 Mg/0.5 Mg (3 Ml) Ud) 3 ml INH RQ6 PRN PRN Reason: Shortness of Breath Amlodipine Besylate (Norvasc) 5 mg PO DAILY [facility] Last Admin: 06/04/18 09:55 Dose: 5 mg Ascorbic Acid (Vitamin C 500 Mg Tab) 500 mg PO DAILY [facility] Last Admin: 06/04/18 09:56 Dose: 500 mg Benzonatate (Tessalon Perles) 100 mg PO TID [facility] Last Admin: 06/04/18 09:55 Dose: 100 mg Famotidine (Pepcid) 20 mg PO DAILY [facility] Last Admin: 06/04/18 09:56 Dose: 20 mg Guaifenesin/Codeine Phosphate (Guaifenesin/Codeine) 10 ml PO Q6H PRN PRN Reason: Cough and congestion - Labs Labs: 06/04/18 07:44 06/04/18 07:44 PT 11.4 SECONDS (9.7-12.2) 05/30/18 16:32 INR 1.0 05/30/18 16:32 APTT 33 SECONDS (21-34) 05/30/18 16:32 - Constitutional Appears: Non-toxic, No Acute Distress - Head Exam Head Exam: ATRAUMATIC, NORMOCEPHALIC - Eye Exam Eye Exam: EOMI, Normal appearance, PERRL - Neck Exam Neck Exam: Full ROM, Normal Inspection - Respiratory Exam Respiratory Exam: NORMAL BREATHING PATTERN. absent: Respiratory Distress - Neurological Exam Neurological Exam: Alert, Awake, Oriented x3 Additional comments: CN 2-12 grossly intact. Slightly unsteady gait secondary to R leg weakness. - Psychiatric Exam Psychiatric exam: Normal Affect, Normal Mood - Skin Skin Exam: Dry, Normal Color, Warm Assessment and Plan - Assessment and Plan (Free Text) Assessment: -Repeat CT head 06/04/18 shows slight increase L basal ganglia hemorrhage -Patient is stable for discharge to home -Family member to serve as caregiver -Consider outpatient PT -Follow up with Dr. Mckeon on outpatient basis in one week
--- NOTE | 2018-06-04 16:03 | CP.PCM.DIS ---
Provider - Provider Date of Admission: 05/30/18 17:10 Attending physician: Saira Wang DO Consults: 05/30/18 15:54 Stroke Team Consult Stat Comment: 5 Consulting Provider: Neurohospitalist Consulting Physician: NEUROHOSP Neurohospitalist for Consult: Moreno Poe Neurohospitalist for Consult: Camden Mckeon Reason for Consult: right sided weakness 05/30/18 21:19 Physician Consult Routine Comment: Consulting Provider: Piter Whitmore Consulting Physician: Piter Whitmore Reason for Consult: hemorrhagic stroke Time Spent in preparation of Discharge (in minutes): 45 Hospital Course - Lab Results Lab Results: Micro Results 06/01/18 13:18 [facility] MRSA Culture - Final MRSA NOT DETECTED 05/30/18 21:06 [facility] MRSA Culture (Admit) - Final MRSA NOT DETECTED Most Recent Lab Values WBC 5.3 K/uL (4.8-10.8) 06/04/18 07:44 RBC 4.90 Mil/uL (3.80-5.20) 06/04/18 07:44 Hgb 14.7 g/dL (11.0-16.0) 06/04/18 07:44 Hct 43.1 % (34.0-47.0) 06/04/18 07:44 MCV 88.1 fL (81.0-99.0) 06/04/18 07:44 MCH 30.0 pg (27.0-31.0) 06/04/18 07:44 MCHC 34.0 g/dL (33.0-37.0) 06/04/18 07:44 RDW 13.0 % (11.5-14.5) 06/04/18 07:44 Plt Count 230 K/uL (130-400) 06/04/18 07:44 MPV 8.6 fL (7.2-11.7) 06/04/18 07:44 Neut % (Auto) 59.9 % (50.0-75.0) 06/04/18 07:44 Lymph % (Auto) 23.5 % (20.0-40.0) 06/04/18 07:44 [place]geman % (Auto) 5.9 % (0.0-10.0) 06/04/18 07:44 Eos % (Auto) 10.2 % (0.0-4.0) H 06/04/18 07:44 Baso % (Auto) 0.5 % (0.0-2.0) 06/04/18 07:44 Neut # (Auto) 3.2 K/uL (1.8-7.0) 06/04/18 07:44 Lymph # (Auto) 1.3 K/uL (1.0-4.3) 06/04/18 07:44 Hodgeman # (Auto) 0.3 K/uL (0.0-0.8) 06/04/18 07:44 Eos # (Auto) 0.5 K/uL (0.0-0.7) 06/04/18 07:44 Baso # (Auto) 0.0 K/uL (0.0-0.2) 06/04/18 07:44 PT 11.4 SECONDS (9.7-12.2) 05/30/18 16:32 INR 1.0 05/30/18 16:32 APTT 33 SECONDS (21-34) 05/30/18 16:32 Sodium 138 mmol/L (132-148) 06/04/18 07:44 Potassium 3.9 mmol/L (3.6-5.2) 06/04/18 07:44 Chloride 104 mmol/L (98-107) 06/04/18 07:44 Carbon Dioxide 30 mmol/L (22-30) 06/04/18 07:44 Anion Gap 9 (10-20) L 06/04/18 07:44 BUN 19 mg/dL (7-17) H 06/04/18 07:44 Creatinine 0.6 mg/dL (0.7-1.2) L 06/04/18 07:44 Est GFR ( Amer) > 60 06/04/18 07:44 Est GFR (Non-Af Amer) > 60 06/04/18 07:44 POC Glucose (mg/dL) 95 mg/dL (65-110) 06/04/18 11:00 Random Glucose 110 mg/dL (65-105) H D 06/04/18 07:44 Hemoglobin A1c 5.6 % (4.2-6.5) 05/30/18 16:32 Calcium 9.0 mg/dl (8.6-10.4) 06/04/18 07:44 Phosphorus 4.4 mg/dL (2.5-4.5) 06/02/18 08:12 Magnesium 1.9 mg/dL (1.6-2.3) 06/02/18 08:12 Total Bilirubin 0.7 mg/dL (0.2-1.3) 06/04/18 07:44 AST 45 U/L (14-36) H D 06/04/18 07:44 ALT 28 U/L (9-52) 06/04/18 07:44 Alkaline Phosphatase 103 U/L (38-126) 06/04/18 07:44 Troponin I < 0.0120 ng/mL (0.00-0.120) 05/30/18 16:32 Total Protein 6.8 g/dL (6.3-8.3) 06/04/18 07:44 Albumin 4.0 g/dL (3.5-5.0) 06/04/18 07:44 Globulin 2.8 gm/dL (2.2-3.9) 06/04/18 07:44 Albumin/Globulin Ratio 1.4 (1.0-2.1) 06/04/18 07:44 Triglycerides 196 mg/dL (0-149) H 05/30/18 16:32 Cholesterol 157 mg/dL (0-199) 05/30/18 16:32 LDL Cholesterol Direct 107 mg/dL (0-129) 05/30/18 16:32 HDL Cholesterol 51 mg/dL (30-70) 05/30/18 16:32 RPR Nonreactive (NONREACTIVE) 06/02/18 08:12 Influenza Typ A,B (EIA) Negative for flu a/b (NEGATIVE) 05/31/18 10:23 Blood Type B POSITIVE 05/30/18 16:32 Antibody Screen Negative 05/30/18 16:32 Discharge Exam - Head Exam Head Exam: ATRAUMATIC, NORMOCEPHALIC Discharge Plan - Discharge Medications Prescriptions: Albuterol HFA [Ventolin HFA 90 mcg/actuation (8 g)] 1 puff IH Q6H PRN #1 inhaler PRN Reason: Shortness Of Breath amLODIPine [Norvasc] 5 mg PO DAILY #30 tab Benzonatate [Tessalon Perles] 100 mg PO TID #90 sgl Famotidine [Pepcid] 20 mg PO DAILY #30 tab Montelukast [Singulair] 10 mg PO HS #30 tab - Follow Up Plan Condition: STABLE Disposition: HOME/ ROUTINE Additional Instructions: Pt is to be discharged home on the following medications
[2018-06-04 16:28] VITALS: BP 141/87; PULSE 73; RESP 20; TEMP 97.3; O2SAT 96
== END 2018-06-04 20:35 | disposition home or self-care (01) | DRG 44 ==
LOC: C.ER 15:39 → C.9E 17:10 → C.9I 19:25 → C.3T 06-01 13:33 → C.6T 06-01 19:58
PROVIDERS: ADMIT Hospitalist; ATTEND Hospitalist
DX: I61.9 Nontraumatic intracerebral hemorrhage, unspecified (principal); G81.91 Hemiplegia, unspecified affecting right dominant side; I10 Essential (primary) hypertension; J45.909 Unspecified asthma, uncomplicated; E66.9 Obesity, unspecified; E87.6 Hypokalemia; E78.1 Pure hyperglyceridemia; J40 Bronchitis, not specified as acute or chronic; N95.1 Menopausal and female climacteric states; W19.XXXA Unspecified fall, initial encounter; Y93.01 Activity, walking, marching and hiking; Z87.01 Personal history of pneumonia (recurrent); Z82.0 Family history of epilepsy and other diseases of the nervous system; Z83.3 Family history of diabetes mellitus